=== PATIENT | male | born 1940 | race Asian ===

== ENCOUNTER 2019-09-17 18:35 | Emergency (ER) | payer MEDICAID, OTHER ==
[~2019-09-17] VITALS: Ht 170.2 cm; Wt 72.6 kg
[2019-09-17 18:35] VITALS: BP_SYST 159
[2019-09-17 19:12] LABS: HEMATOCRIT 32.5 % (36-54); HEMOGLOBIN 10.9 g/dL (14.0-18.0)
[2019-09-17 19:24] LABS: MEAN CORPUSCULAR HEMOGLOBIN 30 pg (27-31); MEAN CORPUSCULAR HGB CONC 34 % (32-36); MEAN CORPUSCULAR VOLUME 89 fL (79.0-98.0); PLATELET COUNT (AUTO) 177 K/uL (130-430); RED BLOOD CELL COUNT(AUTO) 3.64 MIL/uL (4.2-6.2); RED CELL DISTRIBUTION WIDTH 14.6 % (9.0-15.0); WHITE BLOOD COUNT (AUTO) 9.9 K/uL (4.8-10.8)
--- NOTE | 2019-09-17 19:40 | NUR ---
Patient to ER bed 02 to gown for evaluation. Side rails up. Report given to TIGRE Morfin
[2019-09-17 19:41] LABS: BAND % (MANUAL) 2 % (0-6); BASOPHILS % (MANUAL) 0 % (0-2); EOSINOPHILS % (MANUAL) 1 % (0-7); LYMPHOCYTES % (MANUAL) 25 % (20-46); MONOCYTES % (MANUAL) 7 % (0-11)
--- NOTE | 2019-09-17 19:48 | NUR ---
PT.PLACED IN BED 2. HERE FOR MEDICAL CLEARANCE FOR ADMISSION TO [facility]. PT. SENT HERE FROM [facility] FOR DANGER TO SELF. AT BEDSIDE TO EVALUATE PT. PT. ALERT,CONFUSED BUT CALM, CANTONESE SPEAKING ONLY.
--- NOTE | 2019-09-17 19:55 | NUR ---
URINE SPECIMEN AND MRSA SCREEN COLLECTED AND SENT TO THE LAB.
[2019-09-17 20:18] LABS: BILIRUBIN,URINE NEGATIVE (NEGATIVE); CLARITY/URINE CLEAR (CLEAR); COLOR,URINE YELLOW (YELLOW); GLUCOSE,URINE 2+ (NEGATIVE); KETONES,URINE NEGATIVE (NEGATIVE); LEUKOCYTE ESTERASE ,URINE NEGATIVE (NEGATIVE); NITRITE, URINE NEGATIVE (NEGATIVE); PROTEIN URINE 2+ (NEGATIVE); UROBILINOGEN,URINE 0.2 (0.2-1.0)
[2019-09-17 20:35] LABS: BLOOD, URINE TRACE (NEGATIVE)
[2019-09-17 20:45] LABS: BACTERIA,URINE FEW /HPF (None Seen); FINE GRANULAR CASTS,URINE 0-10 /LPF (None Seen); MUCUS,URINE None Seen /LPF (None Seen); RBC,URINE 0-3 /HPF (0-3); WBC,URINE 0-3 /HPF (0-3)
[2019-09-17 20:52] LABS: TRIGLYCERIDES 201 mg/dL (30-150)
[2019-09-17 20:53] LABS: CHOLESTEROL 186 mg/dL (<200); HDL CHOLESTEROL 63 mg/dL (>45); LDL CHOLESTEROL 90 mg/dL (<100)
[2019-09-17 20:54] LABS: BARBITURATE, URINE NEGATIVE (NEG <=200); BENZODIAZEPINE, URINE NEGATIVE (NEG <=150); CANNABINOID, URINE NEGATIVE (NEG <=50); COCAINE, URINE NEGATIVE (NEG <=150); METHAMPHETAMINES SCREEN,URINE NEGATIVE (NEG <=500); OPIATE, URINE NEGATIVE (NEG <=100); PHENCYCLIDINE SCREEN,URINE NEGATIVE (NEG <=25); UR TRICYCLIC ANTIDEPRESSANTS NEGATIVE (NEG <=300); URINE AMPHETAMINE NEGATIVE (NEG <=500); URINE METHADONE NEGATIVE (NEG <=200); URINE OXYCODONE SCREEN NEGATIVE (NEG <=100); URINE PROPOXYPHENE SCREEN NEGATIVE (NEG <=300)
[2019-09-17 20:59] LABS: ALANINE AMINOTRANSFERASE 30 U/L (12-78); ALBUMIN 3.7 g/dL (3.4-4.8); ANION GAP 2 (5-15); ASPARTATE AMINOTRANSFERASE 24 U/L (10-37); CALCIUM 9.3 mg/dL (8.4-11.0); CHLORIDE 103 mmol/L (98-107); CREATININE 1.48 mg/dL (0.55-1.30); GLUCOSE 237 mg/dL (70-99); POTASSIUM 4.9 mmol/L (3.5-5.1); SODIUM SERUM 139 mmol/L (136-145); TOTAL BILIRUBIN 0.2 mg/dL (0.0-1.0); UREA NITROGEN, BLOOD 47 mg/dL (8-21)
[2019-09-17 21:00] LABS: ACETAMINOPHEN < 1 ug/mL (1-30); ALCOHOL, BLOOD < 3 mg/dL (<10)
--- NOTE | 2019-09-17 21:35 | NUR ---
PT. MEDICALLY CLEARED FOR ADMISSION TO [facility] BY MD BUT KA=165/93. ER-MD MADE AWARE.
--- NOTE | 2019-09-17 21:39 | NUR ---
CLONIDINE 0.2 MG PO GIVEN ORDERED.
--- NOTE | 2019-09-17 21:41 | NUR ---
REPORT GIVEN TO ERVIN LANDEROS FROM [facility]. PT. GOING TO ROOM 54-A. [facility] HERE TO RADIOLOGY CT TECHNOLOGIST PT.
[2019-09-17] MEDS ORDERED: cloNIDine HCL 0.1 MG TABLET PO ONE (21:45)
--- NOTE | 2019-09-17 21:47 | NUR ---
REPORT GIVEN TO AKHIL BARAHONA. Addendum: 09/17/19 at 2152 by [email or web address] *TAY
--- NOTE | 2019-09-17 22:10 | NUR ---
BP STILL ELEVATED AT 187/98. ER- MADE AWARE AND SAID PT. OK TO GO.
--- NOTE | 2019-09-17 22:15 | NUR ---
PT. LEFT UNIT VIA AMANDA BACH.
[2019-09-17 22:22] VITALS: BP_SYST 187
== END 2019-09-17 22:22 ==
LOC: SED 18:35
DX: F03.91 Unspecified dementia, unspecified severity, with behavioral disturbance (principal); F91.8 Other conduct disorders; I10 Essential (primary) hypertension; E11.9 Type 2 diabetes mellitus without complications
CPT/HCPCS: 36415; 80053; 80061; 80307; 81000; 83036; 85007; 85027; 99285; G0480; G0481; G0482

== ENCOUNTER 2020-02-26 21:51 | Inpatient (IN) | payer OTHER, MEDICAID, SELFPAY ==
[~2020-02-26] VITALS: Ht 154.9 cm; Wt 50.8 kg
[2020-02-26 21:51] VITALS: BP_SYST 132
--- NOTE | 2020-02-26 21:51 | NUR ---
Patient to ER bed 05 to gown for evaluation. Side rails up. Report given to TIGRE Navarrete.
--- NOTE | 2020-02-26 22:00 | NUR ---
ER at bedside examining patient.
--- NOTE | 2020-02-26 22:00 | NUR ---
# 20 gauge angiocath placed to Right Forearm. Use of asceptic technique. Opsite placed over site. Blood return noted. Blood for lab drawn from site. Flushed with 10 cc of normal saline. No evidence of infiltration noted. Patient tolerated well.
--- NOTE | 2020-02-26 22:12 | NUR ---
X-ray at bedside.
[2020-02-26 22:23] LABS: HEMOGLOBIN 10.6 g/dL (14.0-18.0)
[2020-02-26 22:31] LABS: BASOPHILS % (AUTO) 0.2 % (0.0-2.0); HEMATOCRIT 31.8 % (36-54); LYMPHOCYTES # (AUTO) 0.4 K/uL (1.0-5.5); LYMPHOCYTES % (AUTO) 6.1 % (20.5-51.5); MEAN CORPUSCULAR HEMOGLOBIN 29 pg (27-31); MEAN CORPUSCULAR HGB CONC 33 % (32-36); MEAN CORPUSCULAR VOLUME 87 fL (79.0-98.0); MONOCYTES # (AUTO) 0.4 K/uL (0.0-1.0); MONOCYTES % (AUTO) 6.2 % (1.7-9.3); NEUTROPHILS # (AUTO) 6.2 K/uL (1.8-7.7); NEUTROPHILS % (AUTO) 87.5 % (40.0-70.0); PLATELET COUNT (AUTO) 201 K/uL (130-430); RED BLOOD CELL COUNT(AUTO) 3.67 MIL/uL (4.2-6.2); WHITE BLOOD COUNT (AUTO) 7.1 K/uL (4.8-10.8)
[2020-02-26 22:36] LABS: ANION GAP 9 (5-15); CALCIUM 9.4 mg/dL (8.4-11.0); CHLORIDE 107 mmol/L (98-107); CREATININE 1.69 mg/dL (0.55-1.30); GLUCOSE 182 mg/dL (70-99); POTASSIUM 4.1 mmol/L (3.5-5.1); SODIUM SERUM 146 mmol/L (136-145); UREA NITROGEN, BLOOD 52 mg/dL (8-21)
[2020-02-26 22:42] LABS: INR 0.9 (0.80-1.20); PROTHROMBIN TIME 9.5 SECS (9.5-12.5)
[2020-02-26 22:50] LABS: ALANINE AMINOTRANSFERASE 27 U/L (12-78); ASPARTATE AMINOTRANSFERASE 36 U/L (10-37); TOTAL BILIRUBIN 0.2 mg/dL (0.0-1.0)
--- NOTE | 2020-02-26 22:54 | NUR ---
In and out cath, collected and sent to lab, Urine yellow and clear, ~ 400 Ml.
[2020-02-26] MEDS ORDERED: NS 500 ML IV ONE (23:00)
[2020-02-26] MEDS ORDERED: NACL 0.9% 1,000 ML IV ONE (23:00)
[2020-02-26 23:10] LABS: BILIRUBIN,URINE NEGATIVE (NEGATIVE); CLARITY/URINE CLEAR (CLEAR); COLOR,URINE YELLOW (YELLOW); GLUCOSE,URINE 3+ (NEGATIVE); KETONES,URINE TRACE (NEGATIVE); LEUKOCYTE ESTERASE ,URINE NEGATIVE (NEGATIVE); NITRITE, URINE NEGATIVE (NEGATIVE); PROTEIN URINE 2+ (NEGATIVE); UROBILINOGEN,URINE 0.2 (0.2-1.0)
[2020-02-26 23:14] LABS: BLOOD, URINE TRACE (NEGATIVE)
[2020-02-26 23:15] LABS: BACTERIA,URINE FEW /HPF (None Seen); WBC,URINE 0-3 /HPF (0-3)
[2020-02-27] MEDS ORDERED: CEFEPIME 2 GM in D5W 100 ML IV ONE ×2
[2020-02-27] MEDS ORDERED: VANCOMYCIN HCL 1,000 MG in NS 250 ML IV ONE ×2
[2020-02-27] MEDS ORDERED: VANCOMYCIN HCL 1000 MG/VIAL IV ONE (00:15)
[2020-02-27] MEDS ORDERED: CEFEPIME 1 GM/VIAL (MAXIPIME) ONE (00:18)
[2020-02-27] MEDS ORDERED: ACET-2165 PO (01:07)
[2020-02-27] MEDS ORDERED: LIP40 PO (01:07)
[2020-02-27] MEDS ORDERED: ACET325T53 PO (01:07)
[2020-02-27] MEDS ORDERED: ASPI-1153 PO (01:07)
[2020-02-27] MEDS ORDERED: NOR10 PO (01:07)
[2020-02-27] MEDS ORDERED: BISA5TAB10 PO (01:07)
[2020-02-27] MEDS ORDERED: calcium carbonate PO (01:09)
[2020-02-27] MEDS ORDERED: DOCU250C14 PO (01:10)
[2020-02-27] MEDS ORDERED: CAT.1 PO (01:10)
[2020-02-27] MEDS ORDERED: DOCU-144 PO (01:10)
[2020-02-27] MEDS ORDERED: MAG AL PO (01:15)
[2020-02-27] MEDS ORDERED: LACT10SO6 PO (01:15)
[2020-02-27] MEDS ORDERED: INSU100V7 SUBCUT (01:15)
[2020-02-27] MEDS ORDERED: HYDR-3917 PO (01:15)
[2020-02-27] MEDS ORDERED: SITA100T11 PO (01:15)
[2020-02-27] MEDS ORDERED: VENL75CA56 PO (01:19)
[2020-02-27] MEDS ORDERED: PSYL3.4P5 PO (01:19)
[2020-02-27] MEDS ORDERED: SER25 PO (01:19)
[2020-02-27] MEDS ORDERED: GLU500 PO (01:19)
[2020-02-27] MEDS ORDERED: MOM PO (01:19)
[2020-02-27] MEDS ORDERED: QUET50TA PO (01:19)
[2020-02-27] MEDS ORDERED: MULT-1117 PO (01:19)
--- NOTE | 2020-02-27 01:20 | NUR ---
Medication reconciliation completed with information provided by [facility] [place]. Any prior medication reconciliation on file was reviewed and corrected.
--- NOTE | 2020-02-27 01:53 | NUR ---
Patient will be admitted to care of Dr. Marcus. Admitted to Tele unit. Will go to room 127B. Belongings list completed. Complete and up to date summary report printed. SBAR report to be given at bedside with opportunity for questions.
--- NOTE | 2020-02-27 01:54 | NUR ---
Transfer to Tele via ACLS protocol. Licensed nurse present. IV present no signs or symptoms of infiltration.
[2020-02-27] MEDS: CEFEPIME 1 GM in D5W 50 ML IV SCH (02:00)
--- NOTE | 2020-02-27 02:09 | NUR ---
ADMIT NOTE Received pt from ER to the floor with a diagnosis of PNA/sepsis. Admission process initiated. patient oriented to pain management, safety and call light-teach back done. Addendum: 02/27/20 at 0210 by Juan Miguel Frankel RN pt is confused.
[2020-02-27 02:10] VITALS: BP_SYST 123
[2020-02-27] MEDS: 0.45% NACL 1,000 ML IV SCH ×2 (02:20→17:35)
[2020-02-27] MEDS ORDERED: LORazepam 2 MG/ML VIAL IVP ONE (03:15)
--- NOTE | 2020-02-27 04:48 | NUR ---
Agitation: Patient is confused, constantly removing telemetry leads and nasal cannula. SaO2 on 2L NC = 96%. SaO2 on room air when patient removes nasal cannula ranges between 84% to 91%. Dr. Yoandy Marcus was made aware of patient's current status, received order for Ativan 0.5 MG intravenously. Medication was administered at this time per MD order. No infiltration to IV site. Patient tolerated well. Call light is with patient. Will continue monitoring.
[2020-02-27] MEDS ORDERED: CEFEPIME 1 GM in D5W 50 ML IV SCH (06:00)
--- NOTE | 2020-02-27 06:53 | NUR ---
Closing note: Patient is resting in bed, no acute distress. Even and unlabored respirations on 2L NC. IV fluids infusing well, no infiltration. Call light with patient. Safety, fall precautions observed. Isolation precautions observed for R/O COVID. Will endorse care to dayshift RN.
--- NOTE | 2020-02-27 07:15 | NUR ---
Nutrition Update Ted Scale 15 noted. Pt admitted for Pneumonia, Sepsis Diet: [facility] BMI: 19.8 kg/m2 RD to follow per nutrition care standards.
--- NOTE | 2020-02-27 07:45 | NUR ---
Patient restless, keep on removing telemonitor and tried to hit staff and tried to get up in bed. Cantonese speaking.hx of Dementia. reorientation provided. no s/s of distress. saturation 87%. placed 4 liters nasal cannula. side rail up. bed is low and lock position. bed alarm on. pt voided. good alesia care provided. oral care provided. sponge bath also given. ivf infusing well site patent. no swelling or infiltration noted. contact-droplet precaution maintained. waiting for covid result.
--- NOTE | 2020-02-27 08:00 | NUR ---
PLACED BILATERAL SOFT WRIST RESTRAINT. EASY RELEASE. CIRCULATION GOOD. CAPILLARY REFILL CHECK. WILL MONITOR.
[2020-02-27 08:26] LABS: BASOPHILS % (AUTO) 0.1 % (0.0-2.0); HEMATOCRIT 30.1 % (36-54); HEMOGLOBIN 9.8 g/dL (14.0-18.0); LYMPHOCYTES # (AUTO) 0.6 K/uL (1.0-5.5); LYMPHOCYTES % (AUTO) 13.8 % (20.5-51.5); MEAN CORPUSCULAR HEMOGLOBIN 29 pg (27-31); MEAN CORPUSCULAR HGB CONC 33 % (32-36); MEAN CORPUSCULAR VOLUME 88 fL (79.0-98.0); MONOCYTES # (AUTO) 0.3 K/uL (0.0-1.0); NEUTROPHILS # (AUTO) 3.7 K/uL (1.8-7.7); NEUTROPHILS % (AUTO) 80.1 % (40.0-70.0); PLATELET COUNT (AUTO) 161 K/uL (130-430); RED BLOOD CELL COUNT(AUTO) 3.42 MIL/uL (4.2-6.2); RED CELL DISTRIBUTION WIDTH 13.5 % (9.0-15.0); WHITE BLOOD COUNT (AUTO) 4.7 K/uL (4.8-10.8)
[2020-02-27 08:30] VITALS: BP_SYST 145
[2020-02-27 08:50] LABS: ALANINE AMINOTRANSFERASE 23 U/L (12-78); ALBUMIN 2.7 g/dL (3.4-4.8); ANION GAP 10 (5-15); ASPARTATE AMINOTRANSFERASE 37 U/L (10-37); CALCIUM 8.4 mg/dL (8.4-11.0); CHLORIDE 109 mmol/L (98-107); CREATININE 1.36 mg/dL (0.55-1.30); GLUCOSE 288 mg/dL (70-99); SODIUM SERUM 146 mmol/L (136-145); TOTAL BILIRUBIN 0.3 mg/dL (0.0-1.0); UREA NITROGEN, BLOOD 35 mg/dL (8-21)
--- NOTE | 2020-02-27 10:20 | NUR ---
LIPS DRY. ORAL CARE PROVIDED. TRIED TO FEED PATIENT BUT KEEP ON SPITTING THE FOOD. WILL TRY AGAIN LATER.
--- NOTE | 2020-02-27 10:55 | NUR ---
Case mgt: Pt is Covid pending-I called Rebecca Haines at [phone] to do dc plan assessment--she said her Montenegr[place] is poor and will have someone call us back for questions/assessment-I gave my direct ph# to case mgt-will await call from family-Per [facility] notes, pt is from [facility] in [place]. SYLVIA RN
[2020-02-27] MEDS ORDERED: LORazepam 2 MG/ML VIAL IVP PRN (11:00)
--- NOTE | 2020-02-27 11:20 | NUR ---
PATIENT RESTING, NO S/S OF DISTRESS. BEEN PASSING GAS NO BOWEL MOVEMENT NOTED. TURN AND REPOSITION WITH PILLOW SUPPORT.
[2020-02-27 12:00] VITALS: BP_SYST 132
[2020-02-27] MEDS: INSULIN REGULAR, HUMAN 100 UNITS/ML, 10 ML VIAL (humuLIN R) SUBCUT PRN ×2 (13:29→21:17)
--- NOTE | 2020-02-27 13:43 | NUR ---
CONSULTATION PAGED/CALLED Reason for Consultation: AGITATION, RESTLESS Person Who was Notified: JUNG Consulting Physician: Systems Software Specialist Specialty: Ordering Physician:
--- NOTE | 2020-02-27 14:34 | NUR ---
Case mgt: I received call from family friend Essence Mahnaz, who did conference call with me and Rebecca Deleon Zaki on phone so she could ask questions to Ms Haines in Vietnamese. I learned that Ms Haines is family friend, not a relative, of pt and she will call pt's Ms Benites and let her know her is at our facility. Per Ms Haines, pt gets up in w/c at [facility], feeds self, and has been there since his discharge from a [facility] (less than 1 yr) and was supposed to see a new MD Dr. Hernandez, but that appt didn't happen yet. I explained to Ms. Haines that when pt's ready for discharge planning back to [facility] case mgt dept will notify her--SYLVIA LANDEROS
--- NOTE | 2020-02-27 16:00 | NUR ---
Sherry Sanchez callback informed about the heart rate elevated lowest 115bpm. new order received vasotec 2.5 mg ivpx1. noted and carried out.
[2020-02-27 16:11] VITALS: BP_SYST 123
[2020-02-27] MEDS ORDERED: ENALAPRILAT DIHYDRATE 1.25 MG/ML VIAL IVP ONE (16:30)
--- NOTE | 2020-02-27 18:00 | NUR ---
patient saturation drop to 87%. on 4 liters nasal cannula. placed 6 liters Oxymizer. saturation goes up to 95%. pt voided good alesia care provided. hob elevated to prevent aspiration. tried to feed pt able to consumed 2 spoon of apple sauce.
--- NOTE | 2020-02-27 19:04 | NUR ---
PATIENT SATURATION REMAIN AT 94% ON 6 LITERS OXYMIZER.
--- NOTE | 2020-02-27 19:30 | NUR ---
OPENING NOTES Patient is resting, no signs of distress, 95% O2 saturation, 6L Oximizer. IV site patent, dressings c/d/i. Call light within reach, bed alarm on, bed at lowest position. SCDs on. Will continue to monitor.
[2020-02-27 20:00] VITALS: BP_SYST 124
[2020-02-28] VITALS: BP_SYST 141
[2020-02-28] MEDS: CEFEPIME 1 GM in D5W 50 ML IV SCH (01:46)
--- NOTE | 2020-02-28 02:14 | NUR ---
OPENING NOTES Received patient resting, no signs of acute respiratory distress, 6L oxymizer, saturation 96%. IV site patent, dressings c/d/i. Hernandes catheter draining by gravity, no kinks no loops. Endorsed that patient will need to have calorie counted and did not eat during the day. Call light within reach, bed alarm on, bed at lowest position. Isolation precautions to be kept. Will continue to monitor.
--- NOTE | 2020-02-28 04:40 | NUR ---
DR. LOERA MAKING ROUNDS. NEW ORDER RECEIVED FOR DIGOXIN AND CONSULTS RECEIVED.
[2020-02-28] MEDS ORDERED: ACETAMINOPHEN 325 MG TABLET PO PRN ×2 (04:45)
[2020-02-28] MEDS ORDERED: HYDROcodone/ACETAMIN 5-325 MG TAB (NORCO/ VICODIN) PO PRN (04:45)
[2020-02-28] MEDS ORDERED: BISACODYL 5 MG TABLET.DR (DULCOLAX) PO PRN (04:45)
[2020-02-28] MEDS ORDERED: DIGOXIN 0.5 MG/2 ML AMP IVP ONE (04:45)
[2020-02-28] MEDS ORDERED: CALCIUM CARBONATE 500 MG/ TAB.CHEW PO PRN ×2 (04:45→12:44)
[2020-02-28] MEDS ORDERED: MILK OF MAGNESIA 30 ML UDC PO SCH (04:45)
[2020-02-28] MEDS ORDERED: MAG-AL HYDROX/SIMETH 30 ML UDC PO PRN (04:45)
[2020-02-28] MEDS ORDERED: cloNIDine HCL 0.1 MG TABLET PO SCH (04:45)
[2020-02-28] MEDS ORDERED: LACTULOSE 20 GM/30 ML UDC PO PRN ×2 (04:45→12:42)
[2020-02-28] MEDS ORDERED: DOCUSATE SODIUM 100 MG CAPSULE PO PRN (04:45)
--- NOTE | 2020-02-28 05:45 | NUR ---
CONSULTATION PAGED/CALLED Reason for Consultation: TACHYCARDIA Person Who was Notified: VICTORINO Consulting Physician: DAVID Banquet Line Cook Specialty: CARDIO Ordering Physician: Yaondy LOERA
[2020-02-28] MEDS ORDERED: AZITHROMYCIN 500 MG in NS 250 ML IV ONE (06:30)
--- NOTE | 2020-02-28 07:07 | NUR ---
CONSULTATION PAGED/CALLED Reason for Consultation: [] HYPOXIA Person Who was Notified: [] DR DELACRUZ WAS DIRECTLY PAGED Consulting Physician: [] DR DELACRUZ High Risk Case Manager Specialty: [] PULMO Ordering Physician: [] DR LOERA DEV
--- NOTE | 2020-02-28 07:10 | NUR ---
CLOSING NOTES Patient is resting, no signs of acute respiratory distress, 6L oxymizer, 94% saturation. IV site patent, dressing c/d/i. Call light within reach, bed alarm on, restraints checked throughout shift. All needs met throughout shift. Will endorse care to oncoming shift.
--- NOTE | 2020-02-28 07:35 | NUR ---
INITIAL NOTE PT RESTING IN BED, NO ACUTE DISTRESS NOTED, BREATHING EVEN AND UNLABORED. PT ON 6L OXIMIZER, SATURATING AT 97%. IVF INFUSING WELL AT THIS TIME. SCD'S IN PLACE. SOFT WRIST RESTRAINTS IN PLACE. SKIN ASSESSMENT WNL. CALL LIGHT WITHIN REACH, BED IN LOW AND LOCKED POSITION WITH BED ALARM ON. ISOLATION PRECAUTIONS IN PLACE.
[2020-02-28] MEDS: INSULIN REGULAR, HUMAN 100 UNITS/ML, 10 ML VIAL (humuLIN R) SUBCUT PRN ×3 (07:39→22:57)
[2020-02-28 08:00] VITALS: BP_SYST 118
[2020-02-28] MEDS: ASPIRIN 81 MG TABLET(ECOTRIN) PO SCH ×2 (08:58→09:00)
[2020-02-28] MEDS: Effexor 37.5 MG TAB PO SCH ×3 (08:58→21:00)
[2020-02-28] MEDS: PSYLLIUM HUSK 1 PKT PACKET PO SCH ×3 (08:58→21:00)
[2020-02-28] MEDS: MULTIVITAMINS TAB 1 TABLET PO SCH ×2 (08:58→09:00)
[2020-02-28] MEDS: metFORMIN HCL 500 MG TABLET PO SCH ×2 (08:58→09:00)
[2020-02-28] MEDS: DOCUSATE SODIUM 250 MG CAPSULE PO SCH ×3 (08:58→09:55)
[2020-02-28] MEDS: QUEtiapine FUMARATE 25 MG TABLET PO SCH ×4 (08:59→21:00)
[2020-02-28] MEDS: amLODIPine BESYLATE 10 MG TABLET PO SCH (09:00)
[2020-02-28] MEDS ORDERED: QUEtiapine FUMARATE 25 MG TABLET PO SCH ×2 (09:00→11:00)
[2020-02-28] MEDS ORDERED: NACL 0.9% 1,000 ML IV ONE (09:15)
--- NOTE | 2020-02-28 09:35 | NUR ---
LETHARGIC PLACED PT IN HGIH FOWLERS POSITION, DEEP STIMULI ATTEMPTED TO ROUSE PT. PT LETHARGIC AND DID NOT OPEN EYES. ATTEMPTED ORAL INTAKE, PT REFUSED BY MOVING HEAD SIDE TO SIDE BUT NOT OPENING HIS EYES. CLEANED FACE WITH MOIST TOWEL, ATTEMPT ORAL CARE BUT PT RESISTED BY MOVING SIDE TO SIDE. PT LIPS VERY CHAPPED AND DRY, APPLIED MOISTURE GEL TO LIPS AND REMOVED DRY CRUST, PT TOLERATED WELL. PT INCONTINENT OF BOWEL AND URINE, CHANGED PT AND REPOSITIONED FOR COMFORT.
--- NOTE | 2020-02-28 09:40 | NUR ---
DR. DAVID ARANA AT BEDSIDE EXAMINING PT. INFORMED MD THAT PT IS LETHARGIC AND NOT RESPONDING, PT IS ON 1/2 NS @60. MD TO ORDER NS BOLUS AND CHANGE FLUIDS TO NS. VERIFIED WITH READ BACK.
[2020-02-28] MEDS: NACL 0.9% 1,000 ML IV SCH ×2 (09:52→17:30)
[2020-02-28 10:16] LABS: BASOPHILS % (AUTO) 0.1 % (0.0-2.0); HEMATOCRIT 28.8 % (36-54); HEMOGLOBIN 9.5 g/dL (14.0-18.0); LYMPHOCYTES # (AUTO) 0.6 K/uL (1.0-5.5); LYMPHOCYTES % (AUTO) 7.4 % (20.5-51.5); MEAN CORPUSCULAR HEMOGLOBIN 29 pg (27-31); MEAN CORPUSCULAR HGB CONC 33 % (32-36); MEAN CORPUSCULAR VOLUME 87 fL (79.0-98.0); MONOCYTES # (AUTO) 0.2 K/uL (0.0-1.0); MONOCYTES % (AUTO) 2.3 % (1.7-9.3); NEUTROPHILS # (AUTO) 7.3 K/uL (1.8-7.7); NEUTROPHILS % (AUTO) 90.2 % (40.0-70.0); PLATELET COUNT (AUTO) 151 K/uL (130-430); RED BLOOD CELL COUNT(AUTO) 3.31 MIL/uL (4.2-6.2); RED CELL DISTRIBUTION WIDTH 13.9 % (9.0-15.0); WHITE BLOOD COUNT (AUTO) 8.1 K/uL (4.8-10.8)
[2020-02-28 10:25] LABS: ANION GAP 11 (5-15); CALCIUM 8.1 mg/dL (8.4-11.0); CHLORIDE 111 mmol/L (98-107); CREATININE 1.33 mg/dL (0.55-1.30); GLUCOSE 218 mg/dL (70-99); POTASSIUM 3.2 mmol/L (3.5-5.1); SODIUM SERUM 147 mmol/L (136-145); UREA NITROGEN, BLOOD 27 mg/dL (8-21)
[2020-02-28 10:40] LABS: ALANINE AMINOTRANSFERASE 22 U/L (12-78); ALBUMIN 2.3 g/dL (3.4-4.8); ASPARTATE AMINOTRANSFERASE 42 U/L (10-37); THYROID STIMULATING HORMONE 0.94 uIu/mL (0.36-3.74); TOTAL BILIRUBIN 0.5 mg/dL (0.0-1.0)
[2020-02-28 12:00] VITALS: BP_SYST 153
--- NOTE | 2020-02-28 12:15 | NUR ---
IV INFILTRATED IV CATHETER REMOVED, CATHETER INTACT, NO BLEEDING. NEW IV STARTED ON RIGHT FOREARM 22 GUAGE. PT TOLERATED WELL. IVF INFUSING WELL.
[2020-02-28] MEDS ORDERED: cloNIDine HCL 0.1 MG TABLET PO PRN (12:37)
[2020-02-28] MEDS ORDERED: MILK OF MAGNESIA 30 ML UDC PO PRN (12:43)
--- NOTE | 2020-02-28 15:53 | NUR ---
DR. LEORA RESOURCE NURSE, VIVI SPOKE WITH , INFORMED K 3.2 CALCIUM 8.1, PT IS LETHARGIC AND NOT EATING NOR DRINKING. NEW ORDERS FOR K RIDER AND CALORIE COUNT STARTING AT DINNER. VERIFIED WITH READ BACK.
[2020-02-28 16:00] VITALS: BP_SYST 166
--- NOTE | 2020-02-28 16:22 | NUR ---
HIGH BP/PAGESherry LOERA CATHETER REMOVED, CATHETER INTACT, NO BLEEDING. NEW IV PLACED IN RIGHT UPPER FOREARM 20 GUAGE. PT TOLERATED WELL. IVF INFUSING AT THIS TIME. BP 166/78 HR 107. VIJAY ARANA, WILL CONTINUE TO MONITOR.
--- NOTE | 2020-02-28 16:25 | NUR ---
Dietitian Recommendations *Continue CCHO, Puree diet as tolerated *Recommend Glucerna Shakes TID *Consider appetite stimulant *If PO remains negligible, consider alternative means of nutrition Please see Nutrition Assessment for further details. LT, RD
--- NOTE | 2020-02-28 16:51 | NUR ---
SUPERVISOR PUBLIC MESSAGE SERVICE DR MARCELINO, PLATFORM INSPECTOR FOR DR HERNANDEZ WAS CALLED, RE: HIGH BP.. SPOKE TO ELOINA.
--- NOTE | 2020-02-28 16:56 | NUR ---
DR. MARCELINO SPOKE WITH MD VIA PHONE, INFORMED MD OF BP 166/78 HR 107, PT IS LETHARGIC AND NOT EATING OR DRINKING. NEW ORDERS RECEIVED, VERIFIED WITH READ BACK.
[2020-02-28] MEDS ORDERED: POTASSIUM CHLORIDE 40 MEQ, LIDOCAINE JECT 2% PF 100 MG 50 MG in NS 250 ML IV ONE (17:00)
--- NOTE | 2020-02-28 17:09 | NUR ---
DR. LOERA SPOKE WITH MD AT NURSE STATION, INFORMED MD OF DR. MARCELINO'S ORDER AND DR. JOHNSON CHANGE IN IV FLUIDS. INFORMED MD THAT PT HAS ONLY VOIDED ONCE TODAY, PT HAS RECEIVED 1L BOLUS AND INCREASED IVF RATE. NEW ORDERS FOR BATES CATHETER TO BE INSERTED. VERIFIED WITH READ BACK.
[2020-02-28] MEDS: ENALAPRILAT DIHYDRATE 1.25 MG/ML VIAL IVP SCH (17:14)
--- NOTE | 2020-02-28 18:30 | NUR ---
BATES INSERTED PT INCONTINENT OF BOWEL, SMALL/SOFT AND BLACK. CLEANED PT AND REPOSITIONED. BATES INSERTED, OUTPUT 350CC, CLEAR AND YELLOW, PT TOLERATED WELL.
--- NOTE | 2020-02-28 19:15 | NUR ---
OPENING NOTES Received patient resting, no signs of acute respiratory distress observed, 6L oxymizer, patient tolerating well with 96% O2 saturation. IV site patent, dressings c/d/i, IVF running with K rider, patient tolerating well. Call light within reach, bed alarm on, bed at lowest position. Isolation precautions to be kept. Will continue to monitor.
--- NOTE | 2020-02-28 19:20 | NUR ---
CLOSING NOTE PT RESTING QUIETLY, NO ACUTE DISTRESS NOTED, BREATHING EVEN AND UNLABORED. PT ON 6L OXIMIZER, SATING AT 96%. IVF AND K-RIDER INFUSING WELL. BATES DRAINING TO GRAVITY. SCD'S IN PLACE. CALL LIGHT WITHIN REACH, BED IN LOW AND LOCKED POSITION WITH BED ALARM ON. ISOLATION PRECAUTIONS IN PLACE. ALL NEEDS MET THROUGHOUT SHIFT. ENDORSED TO POLICE CRIME SCENE TECHNICIAN RN, CALORIE COUNT FOR PT STARTING AT DINNER, PT REMAINS LETHARGIC AND DOES NOT EAT OR DRINK, MD IS AWARE. PT CARE ENDORSED TO POLICE CRIME SCENE TECHNICIAN RN.
--- NOTE | 2020-02-28 19:25 | NUR ---
OPENING NOTES Received patient resting in bed, no signs of shortness of breath, 6L Oxymizer, 97 O2 saturation. IV site patent, dressings c/d/i. Hernandes cathter in place, draining by gravity, no kinks, no loops, bag not touching the floor. Was endorsed that patient did not eat and calorie count in place. Call light within reach, bed alarm on, bed at lowest position. Isolation precautions in place, awaiting covid testing results. Will continue to monitor.
[2020-02-28 20:00] VITALS: BP_SYST 160
[2020-02-28] MEDS: ATORVASTATIN 20 MG TABLET PO SCH (21:00)
--- NOTE | 2020-02-28 21:05 | NUR ---
Patient refuses to eat, unable to provide PO medications. Will continue to monitor.
--- NOTE | 2020-02-28 23:10 | NUR ---
Urine sample sent to lab.
[2020-02-29] VITALS: BP_SYST 145
--- NOTE | 2020-02-29 00:15 | NUR ---
Patient is resting, no signs of shortness of breath, scant bowel movement, perineal care performed. IVF running at 50, IV site patent, dressings c/d/i, patient tolerating well. Will continue to monitor.
[2020-02-29] MEDS: ENALAPRILAT DIHYDRATE 1.25 MG/ML VIAL IVP SCH ×4 (01:04→17:37)
--- NOTE | 2020-02-29 01:10 | NUR ---
RECEIVED RESULTS OF POSITIVE COVID TESTING, WILL PAGE DR. LOERA.
--- NOTE | 2020-02-29 01:20 | NUR ---
Paged Stan Reed s/w Christianne.
[2020-02-29] MEDS: CEFEPIME 1 GM in D5W 50 ML IV SCH (02:11)
--- NOTE | 2020-02-29 02:12 | NUR ---
Patient is resting, no signs of distress observed. IVF running at 50, IV site patent, dressings c/d/i.
--- NOTE | 2020-02-29 04:45 | NUR ---
DR LOERA MADE AWARE OF POSITIVE COVID TESTING.
--- NOTE | 2020-02-29 06:10 | NUR ---
DR. BULL MAKING ROUNDS, MADE AWARE THAT PATIENT IS NOT EATING OR TAKING PO MEDICATIONS, NEW ORDER OF HALDOL 2MG IVP Q4P RECEIVED.
[2020-02-29] MEDS ORDERED: HALOPERIDOL LACTATE 5 MG/ML VIAL IVP PRN (06:15)
[2020-02-29] MEDS: INSULIN REGULAR, HUMAN 100 UNITS/ML, 10 ML VIAL (humuLIN R) SUBCUT PRN ×3 (06:55→21:25)
--- NOTE | 2020-02-29 07:15 | NUR ---
CLOSING NOTES Patient is resting, no signs of distress observed, no shortness of breath throughout shift, 6L oxymizer. IV site patent, dressings c/d/i. Call light within reach, bed alarm on, bed at lowest position. qureshi catheter in place, draining by gravity, no kinks, no loops, bag not touching the floor. All needs met throughout shift. Will endorse care to oncoming shift.
[2020-02-29] MEDS: NACL 0.9% 1,000 ML IV SCH (07:22)
[2020-02-29 08:00] VITALS: BP_SYST 146
--- NOTE | 2020-02-29 08:00 | NUR ---
initial notes rec patient asleep but arousable to stimuli. ivf infusing well on the r upper arm . no infiltration noted. bed to the lowest position and side rails up and locked. call light wihtn reached. pt on narciso restrains and checked for circulation. pt with 6 liters oximizer. no osb noted. will continue to monitor patient.
[2020-02-29 08:28] LABS: BASOPHILS % (AUTO) 0.1 % (0.0-2.0); HEMATOCRIT 29.2 % (36-54); HEMOGLOBIN 9.6 g/dL (14.0-18.0); LYMPHOCYTES # (AUTO) 0.6 K/uL (1.0-5.5); LYMPHOCYTES % (AUTO) 7.2 % (20.5-51.5); MEAN CORPUSCULAR HEMOGLOBIN 29 pg (27-31); MEAN CORPUSCULAR HGB CONC 33 % (32-36); MEAN CORPUSCULAR VOLUME 88 fL (79.0-98.0); MONOCYTES # (AUTO) 0.3 K/uL (0.0-1.0); MONOCYTES % (AUTO) 3.7 % (1.7-9.3); NEUTROPHILS # (AUTO) 7.4 K/uL (1.8-7.7); PLATELET COUNT (AUTO) 167 K/uL (130-430); RED BLOOD CELL COUNT(AUTO) 3.33 MIL/uL (4.2-6.2); RED CELL DISTRIBUTION WIDTH 14.1 % (9.0-15.0); WHITE BLOOD COUNT (AUTO) 8.3 K/uL (4.8-10.8)
[2020-02-29] MEDS ORDERED: AZITHROMYCIN 250 MG in NS 250 ML IV SCH (09:00)
[2020-02-29] MEDS: PSYLLIUM HUSK 1 PKT PACKET PO SCH ×2 (09:00→21:00)
[2020-02-29 09:17] LABS: ALANINE AMINOTRANSFERASE 20 U/L (12-78); ANION GAP 9 (5-15); ASPARTATE AMINOTRANSFERASE 44 U/L (10-37); CALCIUM 8.1 mg/dL (8.4-11.0); CREATININE 1.11 mg/dL (0.55-1.30); GLUCOSE 207 mg/dL (70-99); POTASSIUM 3.7 mmol/L (3.5-5.1); SODIUM SERUM 150 mmol/L (136-145); TOTAL BILIRUBIN 0.3 mg/dL (0.0-1.0); UREA NITROGEN, BLOOD 30 mg/dL (8-21)
[2020-02-29 09:19] LABS: CHLORIDE 121 mmol/L (98-107)
[2020-02-29] MEDS: ENOXAPARIN SODIUM 30 MG/0.3 ML SYRINGE SUBCUT SCH (09:30)
[2020-02-29] MEDS: MULTIVITAMINS TAB 1 TABLET PO SCH (10:30)
[2020-02-29] MEDS: Effexor 37.5 MG TAB PO SCH ×2 (10:30→21:00)
[2020-02-29] MEDS: metFORMIN HCL 500 MG TABLET PO SCH (10:30)
[2020-02-29] MEDS: amLODIPine BESYLATE 10 MG TABLET PO SCH (10:30)
[2020-02-29] MEDS: DOCUSATE SODIUM 250 MG CAPSULE PO SCH (10:30)
[2020-02-29] MEDS: ASPIRIN 81 MG TABLET(ECOTRIN) PO SCH (10:30)
[2020-02-29] MEDS: QUEtiapine FUMARATE 25 MG TABLET PO SCH ×3 (10:30→21:00)
--- NOTE | 2020-02-29 10:30 | NUR ---
rounds due meds were given. seen by dr marvin. no osb noted. turned repositoned for comfort. had a bowel movement.
[2020-02-29 12:00] VITALS: BP_SYST 117
--- NOTE | 2020-02-29 12:00 | NUR ---
rounds no hypo hyperglycemic reaction noted. bed to the lowest position. resting comfortably.
--- NOTE | 2020-02-29 14:00 | NUR ---
rounds r t was called pt was sating at 86 88 deg. was observed and oximzer was increased by jakub to 15 liters.
[2020-02-29 16:00] VITALS: BP_SYST 112
--- NOTE | 2020-02-29 18:15 | NUR ---
rounds no hypo hyperglycemic reaction noted. turned repositioned for comfort.
--- NOTE | 2020-02-29 19:00 | NUR ---
closing notes r t was called and patient saturation was 78, 82 and jump to 90. lionel serrano at bedside and did abd. endorsed to sri henriquez rn.
--- NOTE | 2020-02-29 19:30 | NUR ---
RT at bedside Pt O2 sat 88%. RT drawing ABG at this time.
[2020-02-29 19:40] VITALS: BP_SYST 112
--- NOTE | 2020-02-29 20:10 | NUR ---
RT changed pt to non-rebreather mask O2 saturation 97-98%. Paged Dr. Sanchez re abnormal ABGs. Awaiting callback.
[2020-02-29 21:00] VITALS: BP_SYST 166
[2020-02-29] MEDS: ATORVASTATIN 20 MG TABLET PO SCH (21:00)
--- NOTE | 2020-02-29 21:00 | NUR ---
Opening notes Pt eyes closed, opens to stimuli. O2 sat 97% via non-rebreather mask. No s/s distress noted. IVF infusing at ordered rate KATHLEEN 20G no s/s infiltration. Pt refused PO meds. Hernandes catheter draining to gravity with dark yellow urine. Manuel SCDs on. Call light within reach. Safety maintained. Bed low, locked, siderails up. To monitor.
[2020-03-01] VITALS (23 sets, daily range): BP systolic 62–165
--- NOTE | 2020-03-01 00:15 | NUR ---
Paged Dr. Sanchez, dialed pager no. [phone]
--- NOTE | 2020-03-01 00:35 | NUR ---
Rounds/Paged Pt awake, confused. No s/s distress noted. O2 sat 98% on non rebreather mask. Manuel wrists restraints on. Pt repositioned. Paged Dr. Sanchez ([facility]) again, no callback. HS RN aware. Hernandes catheter draining to gravity. Manuel SCDs on. Bed low, locked, siderails up. To monitor.
[2020-03-01] MEDS: ENALAPRILAT DIHYDRATE 1.25 MG/ML VIAL IVP SCH ×3 (00:54→12:00)
[2020-03-01] MEDS: NACL 0.9% 1,000 ML IV SCH ×2 (00:54→21:05)
[2020-03-01] MEDS: CEFEPIME 1 GM in D5W 50 ML IV SCH (01:02)
--- NOTE | 2020-03-01 02:30 | NUR ---
Rounds Pt awake, eyes open, no s/s respiratory distress noted. IVF infusing at ordered rate KATHLEEN clear and patent. Hernandes catheter draining to gravity. Call light within reach. Bed low, locked, siderails up. To monitor.
[2020-03-01] MEDS: INSULIN REGULAR, HUMAN 100 UNITS/ML, 10 ML VIAL (humuLIN R) SUBCUT PRN ×4 (06:15→21:05)
--- NOTE | 2020-03-01 06:24 | NUR ---
Closing notes Pt awake, eyes open, no s/s respiratory distress noted. O2 sat 97-98% on non-rebreather mask. HOB elevated. IVF infusing at ordered rate KATHLEEN 20G no s/s infiltration. Blood sugar checked 216, 4 units Regular insulin administered per protocol. Hernandes catheter draining to gravity with clear, yellow urine. Manuel SCDs on. Bed low, locked, siderails up x4. To endorse to AM nurse.
--- NOTE | 2020-03-01 07:33 | NUR ---
OPENING NOTES PT RESTLESS. PT O2 DROPPED TO 80%, PT ON NON-REBREATHER MASK, ADJUSTED NON-REBREATHER MASK AND MOVED PT UP IN BED, O2 WENT BACK TO 94% THEN BACK TO 91%. SPOKE TO DR. DELACRUZ, RECEIVED ORDERS TO MOVE PT TO ICU.
--- NOTE | 2020-03-01 08:41 | NUR ---
TRANSFERRED PT TO ICU, CARE TO TIGRE DOWNEY.
--- NOTE | 2020-03-01 08:50 | NUR ---
Admission Received patient from [facility]. Patient transferred via bed accompanied by 2 RNs. Patient on non rebreather at 100% FIO2 and O2 89. Rapid intubation ordered by /Laura. At bedside with and received orders to administer 20 mg succinylcholine and 20 mg of etomidate via IV push. Patient tolerated procedure well without complaint or complication. Patient also was inserted an NG tube and chest x ray completed to confirm placement of ET tube and NG tube.
[2020-03-01] MEDS ORDERED: MIDAZOLAM HCL 5 MG/5 ML VIAL ONE (09:00)
--- NOTE | 2020-03-01 09:00 | NUR ---
RT Note: 0857 Pt successfully intubated by Dr Sanchez with 7.5 ETT at 25cm LL. 0900 Placed pt on vent on ff settings AC 20, Vt 300, PEEP 5, and FiO2 100%. Addendum: 03/01/20 at 1003 by Cindy Ro RT Amended: Links added.
--- NOTE | 2020-03-01 09:05 | NUR ---
Radiology at bedside completing chest xray. Received report and NG and ET tube in place.
[2020-03-01] MEDS ORDERED: PROPOFOL DRIP 100 ML IV PRN (09:30)
--- NOTE | 2020-03-01 10:20 | NUR ---
Called Dr. Sanchez and reported patient tachypneic and using accessory muscles for breathing. Resp rate at 31. Received orders to start propofol. Do not exceed 10 mcg/kg/min.
[2020-03-01] MEDS: QUEtiapine FUMARATE 25 MG TABLET PO SCH ×3 (10:33→20:58)
[2020-03-01] MEDS: ASCORBIC ACID 500 MG TABLET PO SCH ×2 (10:34→20:58)
[2020-03-01] MEDS: PSYLLIUM HUSK 1 PKT PACKET PO SCH ×2 (10:34→20:57)
[2020-03-01] MEDS: MULTIVITAMINS TAB 1 TABLET PO SCH (10:34)
[2020-03-01] MEDS: amLODIPine BESYLATE 10 MG TABLET PO SCH (10:34)
[2020-03-01] MEDS: DOCUSATE SODIUM 250 MG CAPSULE PO SCH (10:35)
[2020-03-01] MEDS: metFORMIN HCL 500 MG TABLET PO SCH (10:35)
[2020-03-01] MEDS: ASPIRIN 81 MG TABLET(ECOTRIN) PO SCH (10:35)
[2020-03-01] MEDS: Effexor 37.5 MG TAB PO SCH ×2 (10:35→20:58)
[2020-03-01] MEDS: ENOXAPARIN SODIUM 30 MG/0.3 ML SYRINGE SUBCUT SCH (10:36)
[2020-03-01] MEDS: HYDROXYCHLOROQUINE SULFATE 200 MG TABLET PO SCH ×2 (10:38→20:58)
[2020-03-01] MEDS ORDERED: ETOMIDATE 20 MG/ 10 ML VIAL (AMIDATE) IVP ONE ×2 (11:49→13:52)
[2020-03-01] MEDS ORDERED: SUCCINYLCHOLINE CHLORIDE 20 MG/ML(QUELICIN) IVP ONE ×2 (11:49→13:52)
--- NOTE | 2020-03-01 12:05 | NUR ---
Patient blood pressure observed at 57/28. Paged Dr. Sanchez and stayed with patient at bedside. Patient was repositioned to shunt blood and blood pressure observed to 74/38. Received call from Dr. Sanchez and received orders for Levophed 4mg in 250 NS bag. Patient started on levophed drip. Addendum: 03/01/20 at 1454 by Bulmaro Obrien RN Propofol turned off.
[2020-03-01] MEDS: DOXYCYCLINE HYCLATE 100 MG CAPSULE PO SCH ×2 (12:27→20:58)
[2020-03-01] MEDS ORDERED: NOREPINEPHRINE 4 MG/4 ML VIAL IV ONE (12:39)
--- NOTE | 2020-03-01 13:15 | NUR ---
Spoke to patient Delmis Connelly and had Edgar RN speak Cantonese. Received consent for picc line for telephone consent.
[2020-03-01 14:57] LABS: PROTHROMBIN TIME 9.6 SECS (9.5-12.5)
--- NOTE | 2020-03-01 15:22 | NUR ---
Nutrition F/U Admitting Diagnosis PNA, Sepsis Reviewed Pertinent Medical/Surgical Hx Medical Record Medical History Comment: PMHx includes DM, HLD, protein malnutrition, anemia of CKD3, dementia with behavior disturbance, depression per physician notes. Pt admitted with PNA, pending COVID-19 PCR per physician notes. Pt is of bedbound status and requires total assistance. Per ID physician, pt is hypoxic and on 6L HFNC. Awaiting pulmonary consultation. Pt intubated on 02/26. Subjective Information Pt seen as high risk d/t sepsis. RD deferred visit to pt d/t pt being r/o for COVID-19. RD called Nursing Station to reach Primary RN; however Primary RN was busy tending to pt. RD attempted to call back in the afternoon; however was still unable to reach RN. Left message to have Primary RN call back when available. Per EMR review, PO intake was negligible at 0-25%. Pt will likely benefit from a nutrition supplement to help meet nutrition needs. If PO intake continues to be negligible, pt may need an appetite stimulant or alternative means of nutrition may need to be considered. Nutrition education not appropriate. Current Diet Order/Nutrition Support CCHO, Puree x 4 days TF Jev 1.5 30 ml/hr, 50 ml Q4H x0 days Pertinent Medications Atorvastatin, Lactulose, Tradjenta, MVI, Metformin, Human Insulin, Propofol Pertinent Labs (02/27) Na: 147H, K: 3.2L, BUN: 27H, Cr: 1.33H, BS 218H, POC: 277H, 149H (03/01) POC: 202H Height (Feet) 5 feet Height (Inches) 1.00 inches Weight (Pounds) 112 pounds Weight (Calculated Kilograms) 50.227970 kilograms Patient Weight 50.802 kg Body Mass Index 21.16 kg/m2 %IBW 95 [place]/Adjusted Body Weight IBW: 112#/51kg Weight Status Appropriate Gastrointestinal Symptoms None Usual Diet At Home N/A Skin Integrity Comment: Ted Score: 13 Skin: No problems identified per nursing note. Current % PO Negligible <25%, TF recently initiated Estimated Energy Expenditure (kcals/day) 1200-1440kcal/day (25-30 kcal/kg based on CBW for maintenance) Estimated Protein Required (g/day) 72-96g/day (1.5-2/kg based on CBW for critical illness, sepsis) Estimated Fluid Required (l/day) 1.2-1.4L/day based on CBW for maintenance Problem/Etiology/Signs/Symptoms Inadequate protein energy intake related to estimated nutrition needs for medical condition as evidenced by PO intake not meeting nutrition needs. Increased nutrient needs related to increased metabolic demands as evidenced by critical illness, sepsis Expected Outcomes/Goals -Monitor appetite and PO intakes w/ goal of pt meeting at least 75% of estimated nutritional needs, labs trending WNL, normal GI function, and skin integrity/wt maintenance -TF tolerance Dietitian Recommendations *Continue TF as tolerated which provides: 1080 kcal, 122 g Pro, and 547 mL H2O Follow Up High Risk: F/U in 2-3days
[2020-03-01] MEDS ORDERED: ENALAPRILAT DIHYDRATE 1.25 MG/ML VIAL IVP PRN (15:36)
[2020-03-01] MEDS: LORazepam 2 MG/ML VIAL IVP PRN (15:47)
[2020-03-01] MEDS: NOREPINEPHRINE BITARTRATE 4 MG in NS 246 ML IV PRN ×2 (18:14→23:48)
--- NOTE | 2020-03-01 19:30 | NUR ---
Resumed care for patient.
[2020-03-01] MEDS: ATORVASTATIN 20 MG TABLET PO SCH (20:58)
--- NOTE | 2020-03-01 23:53 | NUR ---
PAGED DR. DELACRUZ FOR ORDERS DIALED: [phone] SPOKE TO: AUTOMATED EXCHANGE
[2020-03-02] VITALS (36 sets, daily range): BP systolic 75–132
--- NOTE | 2020-03-02 00:15 | NUR ---
Received call back from Dr. Sanchez and received orders to change vent setting to Tidal Volume 350 and AC 22
--- NOTE | 2020-03-02 00:19 | NUR ---
PAGED DR. DELACRUZ FOR ORDERS DIALED: [phone] SPOKE TO: AUTOMATED EXCHANGE
[2020-03-02] MEDS: CEFEPIME 1 GM in D5W 50 ML IV SCH (02:00)
--- NOTE | 2020-03-02 03:30 | NUR ---
Closing Note Provided plan of care via sbar to receiving TIGRE Leonard.
--- NOTE | 2020-03-02 03:50 | NUR ---
NURSING ASSESSMENT. PT VENTILATED, TACHYPNEIC, FEEDING VIA NGT RESUMED AT 30 ML PER HR, PT'S HEAD OF BED ELEVATED AT 35 DEGREE ANGLE, IV LEVOPHED DRIP AT 22 MCG/MIN, SALES PROPERTY MANAGER SINUS TACHY, COVID 19 POSITIVE.
[2020-03-02] MEDS: NOREPINEPHRINE BITARTRATE 4 MG in NS 246 ML IV PRN ×3 (05:30→12:00)
[2020-03-02] MEDS: INSULIN REGULAR, HUMAN 100 UNITS/ML, 10 ML VIAL (humuLIN R) SUBCUT PRN ×4 (06:03→21:51)
--- NOTE | 2020-03-02 07:15 | NUR ---
REPORT. GIVEN TO ONCOMING DAY SHIFT NURSE.
--- NOTE | 2020-03-02 07:20 | NUR ---
Received patient and endorsed report from [facility] shift nurse. Patient in bed, side rails x 3 up, call light with in reach, in no acute distress.
[2020-03-02] MEDS: PSYLLIUM HUSK 1 PKT PACKET PO SCH ×2 (08:06→21:21)
[2020-03-02] MEDS: DEXAMETHASONE SOD PHOSPHATE 10 MG/ML VIAL IVP SCH (08:06)
[2020-03-02] MEDS: metFORMIN HCL 500 MG TABLET PO SCH (08:07)
[2020-03-02] MEDS: ASPIRIN 81 MG TABLET(ECOTRIN) PO SCH (08:07)
[2020-03-02] MEDS: ASCORBIC ACID 500 MG TABLET PO SCH ×2 (08:08→21:21)
[2020-03-02] MEDS: HYDROXYCHLOROQUINE SULFATE 200 MG TABLET PO SCH ×2 (08:08→21:21)
[2020-03-02] MEDS: DOCUSATE SODIUM 250 MG CAPSULE PO SCH (08:08)
[2020-03-02] MEDS: DOXYCYCLINE HYCLATE 100 MG CAPSULE PO SCH ×2 (08:08→21:21)
[2020-03-02] MEDS: Effexor 37.5 MG TAB PO SCH ×2 (08:08→21:21)
[2020-03-02] MEDS: QUEtiapine FUMARATE 25 MG TABLET PO SCH ×3 (08:09→21:21)
[2020-03-02] MEDS: LORazepam 2 MG/ML VIAL IVP PRN (08:10)
[2020-03-02] MEDS: ENOXAPARIN SODIUM 30 MG/0.3 ML SYRINGE SUBCUT SCH (08:11)
--- NOTE | 2020-03-02 08:30 | NUR ---
MD Kay at bedside.
[2020-03-02] MEDS: amLODIPine BESYLATE 10 MG TABLET PO SCH (09:00)
[2020-03-02] MEDS ORDERED: MIDAZOLAM HCL 2 MG/2 ML VIAL (VERSED) ONE (09:00)
[2020-03-02] MEDS: MULTIVITAMINS TAB 1 TABLET PO SCH (09:11)
[2020-03-02] MEDS: NACL 0.9% 1,000 ML IV SCH (09:12)
[2020-03-02] MEDS ORDERED: COMMUNICATION ORDER XX PRN (09:15)
--- NOTE | 2020-03-02 09:15 | NUR ---
MD Sanchez at bedside. Ordered 1 mg versed IVP stat, morphine drip titration, versed drip titration. Orders placed.
[2020-03-02] MEDS ORDERED: MORPHINE I.V. DRIP 100 ML IV PRN ×2 (09:30→11:15)
[2020-03-02] MEDS: MIDAZOLAM HCL 50 MG in NS 50 ML IV PRN (10:27)
[2020-03-02 10:36] LABS: BASOPHILS % (AUTO) 0.1 % (0.0-2.0); EOSINOPHILS % (AUTO) 0.1 % (0.0-4.0); HEMATOCRIT 24.7 % (36-54); LYMPHOCYTES # (AUTO) 0.2 K/uL (1.0-5.5); LYMPHOCYTES % (AUTO) 3.6 % (20.5-51.5); MEAN CORPUSCULAR HEMOGLOBIN 29 pg (27-31); MEAN CORPUSCULAR HGB CONC 32 % (32-36); MEAN CORPUSCULAR VOLUME 89 fL (79.0-98.0); MONOCYTES # (AUTO) 0.3 K/uL (0.0-1.0); NEUTROPHILS # (AUTO) 5.6 K/uL (1.8-7.7); NEUTROPHILS % (AUTO) 91.2 % (40.0-70.0); PLATELET COUNT (AUTO) 173 K/uL (130-430); RED BLOOD CELL COUNT(AUTO) 2.77 MIL/uL (4.2-6.2); RED CELL DISTRIBUTION WIDTH 14.6 % (9.0-15.0); WHITE BLOOD COUNT (AUTO) 6.2 K/uL (4.8-10.8)
[2020-03-02 10:38] LABS: ANION GAP 8 (5-15); CALCIUM 7.8 mg/dL (8.4-11.0); CREATININE 1.47 mg/dL (0.55-1.30); GLUCOSE 211 mg/dL (70-99); POTASSIUM 3.7 mmol/L (3.5-5.1); SODIUM SERUM 155 mmol/L (136-145); UREA NITROGEN, BLOOD 36 mg/dL (8-21)
[2020-03-02 10:45] LABS: ALANINE AMINOTRANSFERASE 20 U/L (12-78); ALBUMIN 1.7 g/dL (3.4-4.8); ASPARTATE AMINOTRANSFERASE 46 U/L (10-37); TOTAL BILIRUBIN 0.3 mg/dL (0.0-1.0)
[2020-03-02 10:51] LABS: CHLORIDE 124 mmol/L (98-107)
--- NOTE | 2020-03-02 14:30 | NUR ---
VALENTINO Carranza at bedside, reported chloride from morning lab draw result 124, sodium 155. Stated will look at labs.
--- NOTE | 2020-03-02 15:28 | NUR ---
Rufino Sanchez regarding ABG values.
--- NOTE | 2020-03-02 15:31 | NUR ---
MD Sanchez called back, ordered to decrease FI02 to 80%. Respiratory therapist made aware.
--- NOTE | 2020-03-02 17:00 | NUR ---
Stan Cee MD.
--- NOTE | 2020-03-02 17:15 | NUR ---
MD Marcus called back, informed that urine output for shift was 275 and lab results from this morning resulted in sodium 155 and chloride 124 and asked if IV fluids should be switched. MD Marcus ordered to keep IV fluids as is, new order albumin 25% 50 ml x 2. Orders placed.
--- NOTE | 2020-03-02 17:25 | NUR ---
Md Marcus called facility, new order MD Haynes for nephrology consult related to low urine output. MD Marcus stated don't have to inform MD Haynes was already notified.
[2020-03-02] MEDS ORDERED: ALBUMIN HUMAN 25% 50 ML IV ONE (18:02)
[2020-03-02] MEDS: ALBUMIN HUMAN 25% 50 ML IV SCH ×2 (18:25→21:22)
--- NOTE | 2020-03-02 19:15 | NUR ---
change of shift.pt.presents isolation status;droplet;covid 19+.pt.presents ventilator;prvc intervention.pt.presents et-tube;rt,mouth.position.pt.presents ng-tube;lt.nares;ng-tube feed infusing.pt.presents picc line;location;rt.bicept;drips; ms,levophed,versed infusng.ms-drip:5mg/hr,levophed;4mcq/min,versed;2mg/hr.general status stable.respiratory status stable:o2-sat%=100%.call light/w/in reach of the pt.
--- NOTE | 2020-03-02 19:20 | NUR ---
Endorsed patient and gave report to NOC shift nurse. Patient in no acute distress. Side rails x 3 up. Call light with in reach.
--- NOTE | 2020-03-02 20:00 | NUR ---
pt.assessed.v/s assessed w/in normal limits:note b/p values;2/t levophed drip.picc line:intact;patent;drips;ms.levophed,versed infusing. ng-tube in place;lt.nares.i have attended to skin care.et-tube in place;i have attended to the oral care/suction.qureshi cath intact;patent urine content present.vent/prvc settings tv;500,fio-2%=80,a/c;22,peep;5.o2-sat%=100%.pt.assessed for cleanliness.pt.repositioned. call light placed w/in reach of the pt.
--- NOTE | 2020-03-02 20:30 | NUR ---
blood glucose assessed :value;246mg/dl.
--- NOTE | 2020-03-02 21:00 | NUR ---
2100p medications administered.administered via the ng-tube.w/out resistance/difficulty;ng-tube feed residuals:5ml. i have administered insulin;regular;4 units per the sliding scale.
[2020-03-02] MEDS: ATORVASTATIN 20 MG TABLET PO SCH (21:21)
--- NOTE | 2020-03-02 22:00 | NUR ---
pt.assessed.v/s assessed values w/in normal limits.note b/p values.i have attended to the oral care/suction.picc line intact; patent; drips:ms,levophed,versed infusing.i have administered albumin:25%/50ml 2nd bottle.qureshi cath intact;;patent urine content present; scant.pt.assessed for cleanliness.pt.repositioned.ng-tube in placed;i have attended to the skin care.general status stable. respiratory status stable: vent/prvc;02-sat%=100%.call light placed w/in reach of the pt.
--- NOTE | 2020-03-02 22:35 | NUR ---
RT NOTES 2235 TITRATED FIO2 TO 70%, PT SATURATION 99%, NO RESP DISTRESS NOTED. RN CHANG FLANAGAN. WILL MONITOR PT.
[2020-03-03] VITALS (35 sets, daily range): BP systolic 102–159
--- NOTE | 2020-03-03 | NUR ---
pt.assessed.v/s assessed values w/in normal limits.b/p values noted wnl.i have attended to the oral care/suction.pt.assessed for cleanliness. pt.repositioned.ng-tube in place;skin care attended to.qureshi cath intact patent urine content present.picc line intact;patent drips;ms,levophed,versed infusing.ng-tube feed infusing residuals scant;5ml.general status stable.respiratory status stable; o2-sat%=100%.call light placed w/in reach of the pt.
[2020-03-03] MEDS: NACL 0.9% 1,000 ML IV SCH (00:24)
[2020-03-03] MEDS: NOREPINEPHRINE BITARTRATE 4 MG in NS 246 ML IV PRN (00:26)
--- NOTE | 2020-03-03 00:30 | NUR ---
i have decreased the levophed drip rate;3mcq/min:b/p;126/58.
--- NOTE | 2020-03-03 02:00 | NUR ---
pt.assessed.v/s assessed values w/in normal limits.b/p wnl.iv drips;ms,levophed,versed infusing.pt.assessed for cleanliness.pt.repositioned. picc line intact patent.qureshi cath intact patent.urine content present.i have attended to the oral care/suction. ng-tube in placed. skin care attended to.call light placed w/in reach of the pt.
[2020-03-03] MEDS: CEFEPIME 1 GM in D5W 50 ML IV SCH (02:17)
--- NOTE | 2020-03-03 04:00 | NUR ---
pt.assessed.v/s assessed values w/in normal limits.b/p values noted.ng-tube;lt.nares in place;skin care attended to.et-tube in-place.ng-tube feed infusing.picc line intact;patent drips;ms.levophed versed infusing.qureshi cath intact patent urine content present.general status stable.respiratory status stable;vent/prvc settings:02-sat%=100%.i have attended to the oral care/suction.pt.ased foe cleanliness. pt.repositioned.call light placed w/in reach of the pt.
--- NOTE | 2020-03-03 04:10 | NUR ---
RT NOTES 0410 titrated FIO2 to 60%, pt tolerated well saturation sat 100%. rn sunil aware, no resp distress noted. will monitor pt, will endorse changes to am RT.
[2020-03-03] MEDS: INSULIN REGULAR, HUMAN 100 UNITS/ML, 10 ML VIAL (humuLIN R) SUBCUT PRN ×3 (05:16→18:03)
--- NOTE | 2020-03-03 06:30 | NUR ---
pt.assessed.v/s assessed values w/in normal limits.pt.assessed for cleanliness.pt.repositioned. picc line intact;patent;drips;ms,levophed,versed infusing@0530a i decreased the rate:levophed drip;2mcq/min. b/p 138/54.qureshi cath intact;patent;urine content present;scant total for the 12hr-shift. apprised: consulted;re;decrease urine output.i have noted the sacrum;iad.erythema. sacrum cutaneous issue attended to.dsg applied. vent;prvc assessed;02-sat%=98%.the blood glucose assessed;value;408mg/dl.;jacquie present i apprised of the blood glucose value; did not order additional insulin.i have administered insulin;regular;12-units per the sliding scale.call light placed w/in reach of the pt.
[2020-03-03 06:58] LABS: ALANINE AMINOTRANSFERASE 17 U/L (12-78); ALBUMIN 1.7 g/dL (3.4-4.8); ANION GAP 5 (5-15); ASPARTATE AMINOTRANSFERASE 25 U/L (10-37); CALCIUM 7.2 mg/dL (8.4-11.0); CREATININE 1.64 mg/dL (0.55-1.30); POTASSIUM 3.6 mmol/L (3.5-5.1); SODIUM SERUM 148 mmol/L (136-145); TOTAL BILIRUBIN 0.3 mg/dL (0.0-1.0); UREA NITROGEN, BLOOD 41 mg/dL (8-21)
[2020-03-03 07:03] LABS: CHLORIDE 120 mmol/L (98-107)
[2020-03-03 07:04] LABS: GLUCOSE 438 mg/dL (70-99)
--- NOTE | 2020-03-03 07:30 | NUR ---
CLOSING NOTE PT LAYING IN BED. NO SIGNS OR SYMPTOMS OF DISTRESS NOTED. VITAL SIGNS STABLE. SBAR REPORT GIVEN TO NEIDA LANDEROS. CARE ENDORSED. Addendum: 03/04/20 at 0853 by Antonia Portillo RN NOTE PLACED ON WRONG DATE. 05/04/20
--- NOTE | 2020-03-03 07:55 | NUR ---
RT NOTES Vent settings to CPAP [address] Sanchez's order. No adverse reactions noted.
--- NOTE | 2020-03-03 08:00 | NUR ---
Initial notes- no acute distress noted. tolerating feeding and vent settings at this time. qureshi cath draining yellow urine. will monitor.
[2020-03-03 08:53] LABS: LYMPHOCYTES # (AUTO) 0.2 K/uL (1.0-5.5); MONOCYTES # (AUTO) 0.2 K/uL (0.0-1.0); NEUTROPHILS # (AUTO) 2.6 K/uL (1.8-7.7)
[2020-03-03] MEDS: DOCUSATE SODIUM 250 MG CAPSULE PO SCH (08:58)
[2020-03-03] MEDS: DEXAMETHASONE SOD PHOSPHATE 10 MG/ML VIAL IVP SCH (08:58)
[2020-03-03] MEDS: MULTIVITAMINS TAB 1 TABLET PO SCH (08:59)
[2020-03-03] MEDS: Effexor 37.5 MG TAB PO SCH ×2 (08:59→21:00)
[2020-03-03] MEDS: ASPIRIN 81 MG TABLET(ECOTRIN) PO SCH (08:59)
[2020-03-03] MEDS: metFORMIN HCL 500 MG TABLET PO SCH (08:59)
[2020-03-03] MEDS: PSYLLIUM HUSK 1 PKT PACKET PO SCH (08:59)
[2020-03-03] MEDS: amLODIPine BESYLATE 10 MG TABLET PO SCH (09:00)
[2020-03-03] MEDS: ASCORBIC ACID 500 MG TABLET PO SCH (09:00)
[2020-03-03] MEDS: DOXYCYCLINE HYCLATE 100 MG CAPSULE PO SCH (09:00)
[2020-03-03] MEDS: HYDROXYCHLOROQUINE SULFATE 200 MG TABLET PO SCH (09:00)
[2020-03-03] MEDS: QUEtiapine FUMARATE 25 MG TABLET PO SCH ×2 (09:00→14:49)
[2020-03-03] MEDS: ENOXAPARIN SODIUM 30 MG/0.3 ML SYRINGE SUBCUT SCH (09:02)
[2020-03-03 09:19] LABS: HEMOGLOBIN 6.3 g/dL (14.0-18.0); LYMPHOCYTES % (AUTO) 7.5 % (20.5-51.5); MEAN CORPUSCULAR HEMOGLOBIN 29 pg (27-31); MEAN CORPUSCULAR HGB CONC 33 % (32-36); MEAN CORPUSCULAR VOLUME 88 fL (79.0-98.0); MONOCYTES % (AUTO) 7.1 % (1.7-9.3); PLATELET COUNT (AUTO) 125 K/uL (130-430); RED CELL DISTRIBUTION WIDTH 14.4 % (9.0-15.0)
[2020-03-03 09:20] LABS: HEMATOCRIT 19.4 % (36-54)
--- NOTE | 2020-03-03 10:24 | NUR ---
notes- Dr. solis here and made aware of consults.
--- NOTE | 2020-03-03 11:15 | NUR ---
called family ( ) for blood transfusion consent, interpreted by Essence. Family agreed for transfusion.
--- NOTE | 2020-03-03 12:20 | NUR ---
RT NOTES Vent settings back to PC 16 RR 22 FIO2 80% due to low saturation.
--- NOTE | 2020-03-03 13:07 | NUR ---
Wound Evaluation: Wound Consult ordered for Low Ted Score. Patient evaluated for a low Ted score of 12. Patient had eyes closed, non-verbal, non-responsive to verbal commands, and received in a Goltry InTouch Bed with an IsoFlex ARTEM mattress with low air-loss therapy initiated. Patient needs to be turned in bed. Buttocks have erythema from IAD. Recommend: Reposition patient side to side only every 2 hours with pillow support. Elevate, off-load and float bilateral heels with one pillow lengthwise under each extremity at all times. Offload pressure areas with pillows for pressure re-distribution. Perform skin care and monitor skin integrity Q shift. Use moisture barrier cream on moisture susceptible areas QID and PRN for soiling. Maintain patient on low air-loss therapy.
[2020-03-03 13:41] LABS: NEUTROPHILS % (AUTO) 85.4 % (40.0-70.0)
[2020-03-03] MEDS: HEPARIN SODIUM,PORCINE 5000 UNITS/ML VIAL SUBCUT SCH (14:00)
--- NOTE | 2020-03-03 15:35 | NUR ---
RT NOTES FIO2 to 100 due to low saturation. RN notified
--- NOTE | 2020-03-03 16:25 | NUR ---
BT- Started first unit of PRBC. will monitor.
[2020-03-03 16:26] LABS: BILIRUBIN,URINE NEGATIVE (NEGATIVE); CLARITY/URINE CLEAR (CLEAR); COLOR,URINE YELLOW (YELLOW); GLUCOSE,URINE 3+ (NEGATIVE); KETONES,URINE NEGATIVE (NEGATIVE); LEUKOCYTE ESTERASE ,URINE NEGATIVE (NEGATIVE); NITRITE, URINE NEGATIVE (NEGATIVE); PH,URINE 5.5 (5.0-8.0); PROTEIN URINE 1+ (NEGATIVE); UROBILINOGEN,URINE 0.2 (0.2-1.0)
[2020-03-03 16:27] LABS: BLOOD, URINE TRACE (NEGATIVE)
[2020-03-03 16:32] LABS: RBC,URINE 0-3 /HPF (0-3); WBC,URINE 0-3 /HPF (0-3)
[2020-03-03 16:33] LABS: BACTERIA,URINE FEW /HPF (None Seen); COARSE GRANULAR CASTS,URINE 0-10 /LPF (None Seen); URINE AMORPHOUS URATE 2+ /HPF (None Seen)
--- NOTE | 2020-03-03 18:31 | NUR ---
Notes- Resting at this time. Blood transfusion still ongoing. Afebrile. tolerating current vent settings.
--- NOTE | 2020-03-03 19:16 | NUR ---
OPENING NOTE SBAR RECEIVED FROM ALESHA BRUNO RN. CARE ASSUMED.
--- NOTE | 2020-03-03 20:55 | NUR ---
BLOOD TRANSFUSION COMPLETE 1 UNIT OF PRBCS INFUSED. PT TOLERATED PROCEDURE WELL. WILL CONTINUE TO MONITOR.
--- NOTE | 2020-03-03 21:45 | NUR ---
BLOOD TRANSFUSION 2ND UNIT OF PRBCS BEGUN. NO SIGNS AND SYMPTOMS OF REACTION. WILL CONTINUE TO MONITOR.
--- NOTE | 2020-03-03 22:00 | NUR ---
BLOOD TRANSFUSION INFUSING NO SIGNS OR SYMPTOMS OF REACTION NOTED. VITALS STABLE. PT TOLERATING PROCEDURE WELL. WILL CONTINUE TO MONITOR.
[2020-03-03 22:05] LABS: LEGIONELLA PNEUMOPHILIA AB <0.91 OD ratio (0.00-0.90)
--- NOTE | 2020-03-03 23:30 | NUR ---
BLOOD TRANSFUSION COMPLETE 2 UNIT OF PRBCS INFUSED. NO SIGNS OR SYMPTOMS OF REACTION NOTED. PT TOLERATED PROCEDURE WELL. WILL CONTINUE TO MONITOR.
[2020-03-04] VITALS (35 sets, daily range): BP systolic 89–174
[2020-03-04 00:10] LABS: MYCOPLASMA PNEUMONIAE IgM <770 U/mL (0-769)
[2020-03-04] MEDS: HYDROXYCHLOROQUINE SULFATE 200 MG TABLET PO SCH ×3 (00:45→21:03)
[2020-03-04] MEDS: 0.45% NACL 1,000 ML IV SCH ×2 (00:45→15:39)
[2020-03-04] MEDS: QUEtiapine FUMARATE 25 MG TABLET PO SCH ×4 (00:46→21:04)
[2020-03-04] MEDS: PSYLLIUM HUSK 1 PKT PACKET PO SCH ×3 (00:46→21:03)
[2020-03-04] MEDS: HEPARIN SODIUM,PORCINE 5000 UNITS/ML VIAL SUBCUT SCH ×4 (00:47→21:05)
[2020-03-04] MEDS: ATORVASTATIN 20 MG TABLET PO SCH ×2 (00:48→21:03)
[2020-03-04] MEDS: DOXYCYCLINE HYCLATE 100 MG CAPSULE PO SCH ×3 (00:48→21:04)
[2020-03-04] MEDS ORDERED: MIDAZOLAM HCL 5 MG/5 ML VIAL ONE ×2 (02:16→02:17)
[2020-03-04] MEDS: CEFEPIME 1 GM in D5W 50 ML IV SCH (02:30)
[2020-03-04] MEDS: MIDAZOLAM HCL 50 MG in NS 50 ML IV PRN (03:33)
[2020-03-04 07:16] LABS: BASOPHILS % (AUTO) 0.1 % (0.0-2.0); HEMATOCRIT 31.6 % (36-54); HEMOGLOBIN 10.4 g/dL (14.0-18.0); LYMPHOCYTES # (AUTO) 0.2 K/uL (1.0-5.5); LYMPHOCYTES % (AUTO) 4.5 % (20.5-51.5); MEAN CORPUSCULAR HEMOGLOBIN 30 pg (27-31); MEAN CORPUSCULAR HGB CONC 33 % (32-36); MEAN CORPUSCULAR VOLUME 90 fL (79.0-98.0); MONOCYTES # (AUTO) 0.2 K/uL (0.0-1.0); MONOCYTES % (AUTO) 4.9 % (1.7-9.3); NEUTROPHILS # (AUTO) 3.3 K/uL (1.8-7.7); NEUTROPHILS % (AUTO) 90.5 % (40.0-70.0); PLATELET COUNT (AUTO) 140 K/uL (130-430); RED BLOOD CELL COUNT(AUTO) 3.51 MIL/uL (4.2-6.2); RED CELL DISTRIBUTION WIDTH 15.5 % (9.0-15.0); WHITE BLOOD COUNT (AUTO) 3.6 K/uL (4.8-10.8)
--- NOTE | 2020-03-04 07:30 | NUR ---
Opening Notes Pt received from night RN using SBAR.
--- NOTE | 2020-03-04 07:30 | NUR ---
CLOSING NOTE PT LAYING IN BED. NO SIGNS OR SYMPTOMS OF DISTRESS NOTED. VITAL SIGNS STABLE. SBAR REPORT GIVEN TO NEIDA LANDEROS. CARE ENDORSED.
[2020-03-04] MEDS: INSULIN REGULAR, HUMAN 100 UNITS/ML, 10 ML VIAL (humuLIN R) SUBCUT PRN ×4 (07:52→22:13)
[2020-03-04 08:09] LABS: MICROALBUMIN URINE RANDOM 118.3 ug/mL (Not Estab.)
[2020-03-04 08:12] LABS: ALANINE AMINOTRANSFERASE 15 U/L (12-78); ALBUMIN 1.5 g/dL (3.4-4.8); ANION GAP 6 (5-15); ASPARTATE AMINOTRANSFERASE 26 U/L (10-37); CALCIUM 7.4 mg/dL (8.4-11.0); CREATININE 1.56 mg/dL (0.55-1.30); GLUCOSE 387 mg/dL (70-99); POTASSIUM 3.7 mmol/L (3.5-5.1); SODIUM SERUM 152 mmol/L (136-145); TOTAL BILIRUBIN 0.3 mg/dL (0.0-1.0); UREA NITROGEN, BLOOD 44 mg/dL (8-21)
[2020-03-04 08:15] LABS: CHLORIDE 124 mmol/L (98-107)
[2020-03-04] MEDS: amLODIPine BESYLATE 10 MG TABLET PO SCH (09:00)
[2020-03-04] MEDS: ASPIRIN 81 MG TABLET(ECOTRIN) PO SCH (09:00)
[2020-03-04] MEDS: metFORMIN HCL 500 MG TABLET PO SCH (09:00)
[2020-03-04] MEDS: DEXAMETHASONE SOD PHOSPHATE 10 MG/ML VIAL IVP SCH (09:00)
[2020-03-04] MEDS: DOCUSATE SODIUM 250 MG CAPSULE PO SCH (09:00)
[2020-03-04] MEDS: Effexor 37.5 MG TAB PO SCH ×2 (09:00→21:03)
[2020-03-04] MEDS: MULTIVITAMINS TAB 1 TABLET PO SCH (09:00)
[2020-03-04 10:46] LABS: PROTHROMBIN TIME 10.3 SECS (9.5-12.5)
--- NOTE | 2020-03-04 10:47 | NUR ---
Resting Pt resting with eyes closed, no signs of acute distress. Will continue to monitor.
[2020-03-04 11:19] LABS: TOTAL IRON BIND. CAPACITY 81 ug/dL (250-450)
--- NOTE | 2020-03-04 13:49 | NUR ---
Nutrition F/U Admitting Diagnosis: PNA, Sepsis Medical History Comment: PMHx includes DM, HLD, protein malnutrition, anemia of CKD3, dementia with behavior disturbance, depression per physician notes. 03/04/20: Sepsis, Multiorgan Failure. 03/04 CXR: unchanged appearance of the bilateral infiltrates and effusions. Subjective Information Nutrition Consult received for calorie cound 02/27. - Pt is now intubated, on vent and pureed diet is not medically applicable. Nutrition Consult received for low Ted score 03/03. RD s/w pt's primary RN and she reported that pt is tolerating OGT feeding. RN to cancel PO diet order. Per EMR, blood transfusion was given, BM 03/02 x1, abd is soft and nondistended. Current EN regimen provides 1080 kcal, 46gm protein and 847ml free water daily which meets 77% of estimated calorie needs and 64% of estimated protein needs. RD noted elevated BG and POC BG lab values. Pt may benefit from Glucerna for better BG control and protein supplement to meet estimated protein needs. Current Diet Order/Nutrition Suppor: Jevity 1.5 30 ml/hr, Free Water Flush: 50 ml Q4H x3 days Pertinent Medications: Lactulose, Tradjenta, MVI, Metformin, Human Insulin, Decadron, Seroquel, Heparin, Zinc, Haldol, Lipitor, Colace Pertinent Labs: (03/04) Na: 152H, K: 3.7WNL, BUN: 44H, CRE: 1.56H, BS 387H, POC BH COVID-19 PCR 02/25 Positive Height (Feet): 5 feet Height (Inches): 1.00 inches Weight (Pounds): 112 pounds Weight (Calculated Kilograms): 50.197780 kilograms Body Mass Index: 21.16 kg/m2 Skin Integrity Comment: Ted Score: 13. Gas Fitter note 03/03: No PI No wounds. Per RN 1+ non-pitting edema to Bilateral hand. Current % PO: N/A on EN NEW Estimated Energy Expenditure (kcals/day) T: 36.39 degrees Celsius, Ve: 15.7 1401 kcal/day (PSU 2003b for acute state on vent) Estimated Protein Required (g/day) 72-96g/day (1.5-2/kg based on CBW for critical illness, sepsis) Estimated Fluid Required (l/day) 1.2-1.4L/day based on CBW for maintenance Problem/Etiology/Signs/Symptoms Inadequate protein energy intake related to estimated nutrition needs for medical condition as evidenced by PO intake not meeting nutrition needs. (*no longer applicable) Increased nutrient needs related to increased metabolic demands as evidenced by critical illness, sepsis. (*ongoing) Altered nutrition related labs r/t endocrine and renal dysfunction AEB elevated BG, POC BG, BUN, CRE lab values. (*new) Expected Outcomes/Goals -Monitor EN tolerance and intakes w/ goal of pt meeting at least 75% of estimated nutritional needs, labs trending WNL, normal GI function, and skin integrity/wt maintenance Dietitian Recommendations * Recommend: Glucerna 1.5 at 35ml/hr, Prosource BID, Free Water Flush 50ml Q4H via OGT Provides: 1380 kcal, 99gm protein and 998ml free water daily. Meets: 98% of estimated calorie needs and 103% of upper end of estimated protein needs. Follow Up High Risk: F/U in 2-3days
--- NOTE | 2020-03-04 14:22 | NUR ---
Dietitian Recommendations * Recommend: Glucerna 1.5 at 35ml/hr, Prosource BID, Free Water Flush 50ml Q4H via OGT Provides: 1380 kcal, 99gm protein and 998ml free water daily. Meets: 98% of estimated calorie needs and 103% of upper end of estimated protein needs. Please see Nutrition F/U note for details. INTERMEDIATE, RD
[2020-03-04 16:01] LABS: CREATININE, URINE 49.8 mg/dL
--- NOTE | 2020-03-04 16:16 | NUR ---
RT NOTES- PEEP 8, 80%FIO2 PER DR. LANDEROS INCREASED FIO2 TO 8 AND TITRATED FIO2 TO 80% AT THIS TIME. KEEPING SPO2 ABOVE 90%. TIGRE CARRASQUILLO MADE AWARE.
[2020-03-04] MEDS ORDERED: K PHOS 30 MM in NS 250 ML IV ONE (17:45)
--- NOTE | 2020-03-04 18:01 | NUR ---
FiO2 Monitoring pts Vent changes, pt able to maintain oxygenation of 95% will continue to monitor.
[2020-03-04] MEDS: INSULIN GLARGINE 100 UNITS/ML 10 ML VIAL SUBCUT SCH (18:53)
--- NOTE | 2020-03-04 19:29 | NUR ---
Closing Notes Pt endorsed to night RN using SBAR.
--- NOTE | 2020-03-04 20:00 | NUR ---
LETHARGIC. ORALLY INTUBATED. SUCTIONED WITH SMALL AMOUNT OF CLEAR MUCUS OBTAINED. ORAL CARE GIVEN. NGT FEEDING WITH JEVITY 1.5 AT 30CC/HR. RESIDUAL CHECK 0. NGT FLUSHED WITH 200CC H2O. KATHLEEN PICC LINE DRSG D/I. ON MORPHINE DRIP AT 0.5 MG/HR, AND VERSED DRIP AT 1 MG/HR. BATES CATH PATENT DRAINING CLEAR EMANUEL URINE TO GRAVITY.
--- NOTE | 2020-03-04 21:00 | NUR ---
ACCU-CHEK 330, 8 UNITS REGULAR INSULIN SQ GIVEN PER SLIDING SCALE COV. NGT CLOGGED , DISCONTINUED. NEW OGT REINSERTED. PLACEMENT VERIFIED BY 2 RN'S.
[2020-03-05] VITALS (33 sets, daily range): BP systolic 105–138
--- NOTE | 2020-03-05 | NUR ---
OGT FLUSHED WITH 200CC H2O. ORAL CARE DONE. TURNED. SUCTIONED.
--- NOTE | 2020-03-05 02:00 | NUR ---
DR LOERA HERE. NEW ORDERS GIVEN TO BE IMPLEMENTED.
[2020-03-05] MEDS ORDERED: PIPERACILLIN/TAZOBACTAM 2.25 GM VIAL IV ONE (03:03)
[2020-03-05] MEDS: PIPERACILLIN/TAZO 2.25G/DEX-IS 50 ML IV SCH ×4 (03:05→20:56)
--- NOTE | 2020-03-05 04:00 | NUR ---
SUCTIONED WITH SAME RESULTS. OGT FLUSHED WITH 200CC H2O. ORAL CARE DONE.
--- NOTE | 2020-03-05 05:00 | NUR ---
CHG BATH GIVEN. BATES CARE, BACK CARE, SKIN CARE, AVELINO CARE RENDERED. PARTIAL LINEN CHANGE DONE. DOES NOT ASSIST WITH TURNING. MISAEL PROC WELL.
[2020-03-05] MEDS: HEPARIN SODIUM,PORCINE 5000 UNITS/ML VIAL SUBCUT SCH ×3 (05:28→21:13)
--- NOTE | 2020-03-05 06:00 | NUR ---
UO ADEQUATE. GRIMACES WHEN SUCTIONED. REMAINS IN GUARDED CONDITION.
[2020-03-05 06:07] LABS: FOLATE (FOLIC ACID) 5.9 ng/mL (>3.0)
[2020-03-05] MEDS: INSULIN REGULAR, HUMAN 100 UNITS/ML, 10 ML VIAL (humuLIN R) SUBCUT PRN ×4 (06:15→21:53)
--- NOTE | 2020-03-05 06:30 | NUR ---
ACCU-CHEK 359, 10 UNITS REGULAR INSULIN SQ GIVEN PER SLIDING SCALE COV.
[2020-03-05 06:57] LABS: BASOPHILS % (AUTO) 0.1 % (0.0-2.0); HEMATOCRIT 31.1 % (36-54); HEMOGLOBIN 10.1 g/dL (14.0-18.0); LYMPHOCYTES # (AUTO) 0.2 K/uL (1.0-5.5); LYMPHOCYTES % (AUTO) 3.4 % (20.5-51.5); MEAN CORPUSCULAR HEMOGLOBIN 30 pg (27-31); MEAN CORPUSCULAR HGB CONC 33 % (32-36); MEAN CORPUSCULAR VOLUME 91 fL (79.0-98.0); MONOCYTES # (AUTO) 0.4 K/uL (0.0-1.0); MONOCYTES % (AUTO) 5.9 % (1.7-9.3); NEUTROPHILS # (AUTO) 6.3 K/uL (1.8-7.7); NEUTROPHILS % (AUTO) 90.6 % (40.0-70.0); PLATELET COUNT (AUTO) 150 K/uL (130-430); RED BLOOD CELL COUNT(AUTO) 3.42 MIL/uL (4.2-6.2); RED CELL DISTRIBUTION WIDTH 15.7 % (9.0-15.0); WHITE BLOOD COUNT (AUTO) 6.9 K/uL (4.8-10.8)
[2020-03-05 07:09] LABS: ANION GAP 10 (5-15); CHLORIDE 119 mmol/L (98-107); CREATININE 2.04 mg/dL (0.55-1.30); GLUCOSE 347 mg/dL (70-99); POTASSIUM 4.8 mmol/L (3.5-5.1); SODIUM SERUM 150 mmol/L (136-145); UREA NITROGEN, BLOOD 59 mg/dL (8-21)
[2020-03-05 07:14] LABS: LACTATE DEHYDROGENASE 350 U/L (85-227); PHOSPHORUS 4.6 mg/dL (2.7-4.5)
[2020-03-05 07:19] LABS: PROTHROMBIN TIME 10.5 SECS (9.5-12.5)
--- NOTE | 2020-03-05 07:30 | NUR ---
Opening Notes Pt received from night RN using SBAR. Pt laying in bed with eyes closed, bed in lowest position with HOB greater than [address] draining yellow urine to gravity. Pt connected to Vent. Isolation precautions in place.
[2020-03-05 07:51] LABS: CALCIUM 6.7 mg/dL (8.4-11.0)
[2020-03-05] MEDS: ASPIRIN 81 MG TABLET(ECOTRIN) PO SCH (08:22)
[2020-03-05] MEDS: DOCUSATE SODIUM 250 MG CAPSULE PO SCH (08:22)
[2020-03-05] MEDS: DEXAMETHASONE SOD PHOSPHATE 10 MG/ML VIAL IVP SCH (08:22)
[2020-03-05] MEDS: amLODIPine BESYLATE 10 MG TABLET PO SCH (08:23)
[2020-03-05] MEDS: Effexor 37.5 MG TAB PO SCH ×2 (08:23→21:11)
[2020-03-05] MEDS: DOXYCYCLINE HYCLATE 100 MG CAPSULE PO SCH ×2 (08:23→21:12)
[2020-03-05] MEDS: MULTIVITAMINS TAB 1 TABLET PO SCH (08:23)
[2020-03-05] MEDS: PSYLLIUM HUSK 1 PKT PACKET PO SCH ×2 (08:24→21:12)
[2020-03-05] MEDS: HYDROXYCHLOROQUINE SULFATE 200 MG TABLET PO SCH (08:24)
[2020-03-05] MEDS: metFORMIN HCL 500 MG TABLET PO SCH (08:24)
[2020-03-05] MEDS: QUEtiapine FUMARATE 25 MG TABLET PO SCH ×3 (08:24→21:12)
[2020-03-05] MEDS: INSULIN GLARGINE 100 UNITS/ML 10 ML VIAL SUBCUT SCH (08:25)
--- NOTE | 2020-03-05 11:30 | NUR ---
Resting Pt resting, no new changes at this time. Will continue to monitor.
--- NOTE | 2020-03-05 13:40 | NUR ---
FiO2 titrated down to 70% Addendum: 03/05/20 at 1505 by Ramiro Vidales RT Amended: Links added.
--- NOTE | 2020-03-05 14:00 | NUR ---
FiO2 PT changed to FiO2 70% by RT, will continue to monitor.
[2020-03-05] MEDS: 0.45% NACL 1,000 ML IV SCH (14:35)
[2020-03-05] MEDS ORDERED: CALCIUM 500 MG/TAB PO SCH (15:45)
--- NOTE | 2020-03-05 16:02 | NUR ---
Foam Dressing Change Foam dressing changed for pt, pt tolerated well. Will continue to monitor.
[2020-03-05] MEDS ORDERED: CALCIUM 500 MG/TAB PO ONE (18:15)
[2020-03-05] MEDS: MIDAZOLAM HCL IV PRN (18:55)
[2020-03-05] MEDS: NS IV PRN (18:55)
--- NOTE | 2020-03-05 19:25 | NUR ---
Report Report given to Conchita LANDEROS using SBAR. All questions answered at this time. Isolation precautions observed during shift.
--- NOTE | 2020-03-05 19:30 | NUR ---
REPORT OBTAINED FROM DAY SHIFT NURSE. PT IS INTUBATED AND TOLERATING VENT SETTINGS WELL. PT IS SEDATED AND NO RESPIRATORY DISTRESS NOTED. VERSED DRIP IS INFUSING WELL AT 2MG/HR, MORPHINE DRIP AT 0.5MG/HR AND IVF OF 1/2NS AT 40ML/HR, ALL INFUSING VIA KATHLEEN PICC WITH PICC DRESSING DRY AND INTACT. SKIN IS WARM AND DRY TO TOUCH. NO SIGNS OR SYMPTOMS OF HYPOGLYCEMIA OR HYPERGLYCEMIA NOTED. OGT FEEDING INFUSING WELL AT 30ML/HR AND RESIDUAL 5ML. OGT PLACEMENT AUSCULTATED AND PLACEMENT VERIFIED. BATES CATH TO GRAVITY DRAINAGE DRAINING YELLOWISH URINE.
[2020-03-05] MEDS: ATORVASTATIN 20 MG TABLET PO SCH (21:11)
[2020-03-05] MEDS: CALCIUM 500 MG/TAB PO SCH (21:12)
--- NOTE | 2020-03-05 21:13 | NUR ---
SCHEDULED SQ HEPARIN GIVEN AFTER CONSULTING WITH EDMUND [facility]. PTT IS ELEVATED AT 53.1. PER EDMUND, SQ HEPARIN DOES NOT HAVE EFFECT ON PTT.
--- NOTE | 2020-03-05 21:53 | NUR ---
ACCUCHECK 261 AND 6 UNITS REGULAR INSULIN GIVEN SQ. SKIN REMAINS WARM AND DRY TO TOUCH.
[2020-03-06] VITALS (36 sets, daily range): BP systolic 109–152
[2020-03-06] MEDS: PIPERACILLIN/TAZO 2.25G/DEX-IS 50 ML IV SCH ×4 (02:15→21:25)
--- NOTE | 2020-03-06 04:45 | NUR ---
CHG BATH GIVEN, INCLUDING ORAL CARE AND BATES CATH CARE.
[2020-03-06 05:56] LABS: BASOPHILS % (AUTO) 0.1 % (0.0-2.0); HEMOGLOBIN 10.6 g/dL (14.0-18.0); LYMPHOCYTES # (AUTO) 0.5 K/uL (1.0-5.5); LYMPHOCYTES % (AUTO) 3.6 % (20.5-51.5); MEAN CORPUSCULAR HEMOGLOBIN 29 pg (27-31); MEAN CORPUSCULAR HGB CONC 32 % (32-36); MEAN CORPUSCULAR VOLUME 91 fL (79.0-98.0); MONOCYTES # (AUTO) 0.8 K/uL (0.0-1.0); MONOCYTES % (AUTO) 6.5 % (1.7-9.3); NEUTROPHILS # (AUTO) 11.6 K/uL (1.8-7.7); NEUTROPHILS % (AUTO) 89.8 % (40.0-70.0); PLATELET COUNT (AUTO) 184 K/uL (130-430); RED BLOOD CELL COUNT(AUTO) 3.63 MIL/uL (4.2-6.2); RED CELL DISTRIBUTION WIDTH 15.9 % (9.0-15.0); WHITE BLOOD COUNT (AUTO) 12.9 K/uL (4.8-10.8)
[2020-03-06] MEDS: CALCIUM 500 MG/TAB PO SCH ×3 (06:05→21:26)
[2020-03-06] MEDS: HEPARIN SODIUM,PORCINE 5000 UNITS/ML VIAL SUBCUT SCH ×3 (06:06→21:19)
[2020-03-06] MEDS: INSULIN REGULAR, HUMAN 100 UNITS/ML, 10 ML VIAL (humuLIN R) SUBCUT PRN ×4 (06:35→21:03)
[2020-03-06 06:57] LABS: INR 1.1 (0.80-1.20)
[2020-03-06 07:11] LABS: ALBUMIN 1.2 g/dL (3.4-4.8); ANION GAP 7 (5-15); CHLORIDE 118 mmol/L (98-107); CREATININE 2.28 mg/dL (0.55-1.30); GLUCOSE 227 mg/dL (70-99); POTASSIUM 4.6 mmol/L (3.5-5.1); SODIUM SERUM 147 mmol/L (136-145); UREA NITROGEN, BLOOD 71 mg/dL (8-21)
--- NOTE | 2020-03-06 07:45 | NUR ---
Report Received from Conchita LANDEROS.
[2020-03-06 08:23] LABS: ALANINE AMINOTRANSFERASE 24 U/L (12-78); ASPARTATE AMINOTRANSFERASE 33 U/L (10-37); CALCIUM 6.9 mg/dL (8.4-11.0); TOTAL BILIRUBIN 0.2 mg/dL (0.0-1.0)
--- NOTE | 2020-03-06 08:25 | NUR ---
PAGED PAGED WADE MARQUIS AT [phone] SPOKE WITH LAURA.
--- NOTE | 2020-03-06 08:25 | NUR ---
Dr. Kay rounds updates given, will follow up with any new orders.
[2020-03-06] MEDS: QUEtiapine FUMARATE 25 MG TABLET PO SCH ×3 (08:39→21:26)
[2020-03-06] MEDS: ASPIRIN 81 MG TABLET(ECOTRIN) PO SCH (08:39)
[2020-03-06] MEDS: Effexor 37.5 MG TAB PO SCH ×2 (08:39→21:26)
[2020-03-06] MEDS: DOCUSATE SODIUM 250 MG CAPSULE PO SCH (08:39)
[2020-03-06] MEDS: MULTIVITAMINS TAB 1 TABLET PO SCH (08:39)
[2020-03-06] MEDS: DOXYCYCLINE HYCLATE 100 MG CAPSULE PO SCH ×2 (08:39→21:26)
[2020-03-06] MEDS: PSYLLIUM HUSK 1 PKT PACKET PO SCH ×2 (08:40→21:26)
[2020-03-06] MEDS: DEXAMETHASONE SOD PHOSPHATE 10 MG/ML VIAL IVP SCH (08:40)
--- NOTE | 2020-03-06 08:40 | NUR ---
Rounds/Medication patient resting in bed, obtunded, no signs of distress, ETT 7.5 lipline 25, vent settings 22, 70%, 8, pressure 16, OGT in place no residual output, water flush provided per MD orders, medications administered per MD orders, right upper arm PICC intact, no s/s of infiltration, on versed 2m/hr, morphine 0.5mg/hr, IVF infusing, continuing to monitor, bed in lowest position, three side rails up, bed alarm on, fall, isolation and aspiration precautions in place.
[2020-03-06] MEDS: amLODIPine BESYLATE 10 MG TABLET PO SCH (08:41)
[2020-03-06] MEDS: INSULIN GLARGINE 100 UNITS/ML 10 ML VIAL SUBCUT SCH (08:44)
--- NOTE | 2020-03-06 09:50 | NUR ---
Dr. Del Angel rounds updates given, will follow up with any new orders.
--- NOTE | 2020-03-06 11:57 | NUR ---
RN rounds/Medication patient resting in bed, eyes closed, still obtunded, blood glucose checked and insulin coverage provided per MD orders, Hernandes Catheter emptied, temperature taken, afebrile, PICC line is patent and infusing well, no s/s of infiltration, patient is still on versed 2mg/hour, morphine 0.5mg/hour and IVF, patient still has pitting edema, continuing to monitor, bed in lowest position, three side rails up, fall, aspiration and isolation precautions in place.
--- NOTE | 2020-03-06 12:00 | NUR ---
Dr. Haynes rounds aware of low calcium, received orders to change tubefeeding to glucerna, will follow up.
[2020-03-06] MEDS ORDERED: FUROSEMIDE 20 MG/2 ML VIAL IVP ONE (13:00)
[2020-03-06] MEDS: 0.45% NACL 1,000 ML IV SCH (14:04)
--- NOTE | 2020-03-06 14:35 | NUR ---
RN rounds/Medication patient resting in bed, eyes closed, still obtunded, administered medications per MD orders, will follow with dose of albumin, verified with pharmacy that the albumin can piggyback on 10/18 NS, PICC line is patent and infusing well, no s/s of infiltration, patient is still on versed 2mg/hour, morphine 0.5mg/hour and IVF, patient still has pitting edema, continuing to monitor, bed in lowest position, three side rails up, fall, aspiration and isolation precautions in place.
[2020-03-06] MEDS: ALBUMIN HUMAN 25% 50 ML IV SCH ×2 (15:10→19:00)
--- NOTE | 2020-03-06 15:10 | NUR ---
RN rounds/Bloody stool patient resting in bed, eyes closed, breathing without distress, hung albumin per MD orders. Upon turning patient bloody, mucous like stool was noted, stool amount on chux pad was minimal and some stool was noted to be still in the rectum, will notify MD.
--- NOTE | 2020-03-06 15:36 | NUR ---
Pagejacquie Marcus regarding blood in stool. Addendum: 03/06/20 at 1640 by Roland Palma RN 1600 orders received, will follow up.
[2020-03-06] MEDS ORDERED: MINERAL OIL 133 ML ENEMA RC ONE (16:00)
--- NOTE | 2020-03-06 18:05 | NUR ---
RN rounds/Medication patient resting in bed, eyes closed, still obtunded, blood glucose checked and insulin coverage provided per MD orders, Hernandes Catheter emptied, new tube feeding hung per MD orders, water flush provided, PICC line is patent and infusing well, no s/s of infiltration, patient is still on versed 2mg/hour, morphine 0.5mg/hour and IVF, patient still has pitting edema to bilateral upper extremities, continuing to monitor, bed in lowest position, three side rails up, fall, aspiration and isolation precautions in place.
--- NOTE | 2020-03-06 18:51 | NUR ---
Closing note patient resting in bed, eyes closed, still obtunded, tolerating vent settings, all needs met, will endorse report to NOC shift nurse, PICC line is patent and infusing well, no s/s of infiltration, patient is still on versed 2mg/hour, morphine 0.5mg/hour and IVF, patient still has pitting edema to bilateral upper extremities, bed in lowest position, three side rails up, fall, aspiration and isolation precautions in place.
--- NOTE | 2020-03-06 20:15 | NUR ---
MORPHINE SULFATE GTT 0.5 MG ML HOUR , CHEST MOVEMENT SYMMETRICAL ON VENTILATOR .
--- NOTE | 2020-03-06 21:15 | NUR ---
Patient @ 80 % on vent this hour PEEP 8 02 SAT 91 %
[2020-03-06] MEDS: ATORVASTATIN 20 MG TABLET PO SCH (21:26)
--- NOTE | 2020-03-06 21:30 | NUR ---
ALBUMEN 25 % infusing @ 50 ml hour as ordered patient kept upright position minimal vent alarming noted continue to monitor .
--- NOTE | 2020-03-06 23:30 | NUR ---
Patient placed on 100 % 02 on VENT D/T DE SATING , SAT NOW 95 % continue to monitor .
[2020-03-07] VITALS (32 sets, daily range): BP systolic 119–165
[2020-03-07] MEDS: ALBUMIN HUMAN 25% 50 ML IV SCH ×4 (01:14→18:00)
[2020-03-07] MEDS: PIPERACILLIN/TAZO 2.25G/DEX-IS 50 ML IV SCH ×4 (01:15→20:52)
[2020-03-07] MEDS: MIDAZOLAM HCL IV PRN (01:18)
[2020-03-07] MEDS: NS IV PRN (01:18)
--- NOTE | 2020-03-07 02:44 | NUR ---
HEPARIN 5000 UNITS SUB Q. ADMINISTER ORDERED , NO S/SX OF ADVERSE REACTION NOTED CHEST MOVEMENT SHALLOW ALSO SYMMETRICAL UNLABORED .
--- NOTE | 2020-03-07 04:01 | NUR ---
TURNING & Repositioning patient off loading with pillows , comfort measures implemented 02 SAT 95 % tolerated / .
[2020-03-07 05:50] LABS: BASOPHILS % (AUTO) 0.1 % (0.0-2.0); HEMATOCRIT 32.1 % (36-54); HEMOGLOBIN 10.3 g/dL (14.0-18.0); LYMPHOCYTES # (AUTO) 0.5 K/uL (1.0-5.5); LYMPHOCYTES % (AUTO) 3.8 % (20.5-51.5); MEAN CORPUSCULAR HEMOGLOBIN 30 pg (27-31); MEAN CORPUSCULAR HGB CONC 32 % (32-36); MEAN CORPUSCULAR VOLUME 91 fL (79.0-98.0); MONOCYTES # (AUTO) 0.7 K/uL (0.0-1.0); MONOCYTES % (AUTO) 5.7 % (1.7-9.3); NEUTROPHILS # (AUTO) 11.7 K/uL (1.8-7.7); NEUTROPHILS % (AUTO) 90.4 % (40.0-70.0); PLATELET COUNT (AUTO) 155 K/uL (130-430); RED BLOOD CELL COUNT(AUTO) 3.51 MIL/uL (4.2-6.2); RED CELL DISTRIBUTION WIDTH 15.7 % (9.0-15.0); WHITE BLOOD COUNT (AUTO) 12.9 K/uL (4.8-10.8)
[2020-03-07] MEDS: CALCIUM 500 MG/TAB PO SCH ×3 (05:51→20:52)
[2020-03-07] MEDS: HEPARIN SODIUM,PORCINE 5000 UNITS/ML VIAL SUBCUT SCH ×3 (05:53→20:54)
[2020-03-07 06:07] LABS: ANION GAP 9 (5-15); CALCIUM 7.1 mg/dL (8.4-11.0); CHLORIDE 114 mmol/L (98-107); CREATININE 2.31 mg/dL (0.55-1.30); GLUCOSE 273 mg/dL (70-99); POTASSIUM 4.9 mmol/L (3.5-5.1); SODIUM SERUM 146 mmol/L (136-145); UREA NITROGEN, BLOOD 74 mg/dL (8-21)
[2020-03-07] MEDS: INSULIN REGULAR, HUMAN 100 UNITS/ML, 10 ML VIAL (humuLIN R) SUBCUT PRN ×3 (06:07→21:39)
--- NOTE | 2020-03-07 08:00 | NUR ---
AM ASSESSMENT. PT MECHANICALLY VENTILATED, EYES CLOSED, SLIGHT HEAD MOTION SEEN, TEMP 97.1, WBC 12.9, IV ZOSYN CONTINUES, PT ON VERSED DRIP AT 2 MG/HR, MORPHINE DRIP AT 0.5 MG PER HR, 1/2 NS AT 40 ML PER HR, ARMS AND AROUND HIS ANKLES EDEMATOUS, TURNED PT TO HIS SIDE, PLACED EXTREMITIES UP ON PILLOW TO REDUCE SWELLING.
--- NOTE | 2020-03-07 08:40 | NUR ---
FOOT MITER OPERATOR. DR LANDEROS WENT TO SEE PT. ABG REPORT HANDED TO . HE ASKED FOR THE PHONE NUMBER OF PT'S FAMILY. EDMUND'S NUMBER GIVEN. HE STATED THAT HE WILL CONTACT THEM FOR UPDATE.
[2020-03-07] MEDS: DOCUSATE SODIUM 250 MG CAPSULE PO SCH (08:42)
[2020-03-07] MEDS: FUROSEMIDE 20 MG/2 ML VIAL IVP SCH (08:42)
[2020-03-07] MEDS: MULTIVITAMINS TAB 1 TABLET PO SCH (08:42)
[2020-03-07] MEDS: ASPIRIN 81 MG TABLET(ECOTRIN) PO SCH (08:42)
[2020-03-07] MEDS: PSYLLIUM HUSK 1 PKT PACKET PO SCH ×2 (08:42→20:53)
[2020-03-07] MEDS: QUEtiapine FUMARATE 25 MG TABLET PO SCH ×3 (08:43→20:53)
[2020-03-07] MEDS: amLODIPine BESYLATE 10 MG TABLET PO SCH (08:43)
[2020-03-07] MEDS: DEXAMETHASONE SOD PHOSPHATE 10 MG/ML VIAL IVP SCH (08:44)
[2020-03-07] MEDS: Effexor 37.5 MG TAB PO SCH ×2 (08:53→20:52)
[2020-03-07] MEDS: DOXYCYCLINE HYCLATE 100 MG CAPSULE PO SCH (08:53)
[2020-03-07] MEDS: INSULIN GLARGINE 100 UNITS/ML 10 ML VIAL SUBCUT SCH (08:55)
--- NOTE | 2020-03-07 09:25 | NUR ---
VENT. R.T. CHANGED FIO2 TO 100%, O2 SAT RANGING BETWEEN 83 TO 88%.
--- NOTE | 2020-03-07 12:50 | NUR ---
CONSENT. DR LOERA IN THE UNIT AND ASKED TO SPEAK TO THE PT'S FAMILY. CALLED UP PIPO SANTOS, SHE SAID THAT SHE IS A FRIEND OF THE PT'S SPOUSE AND WILL TRANSLATE INFORMATION OF THE DOCTOR TO THE FAMILY.
--- NOTE | 2020-03-07 13:40 | NUR ---
FAMILY. PT'S SON IN LAW, SANTOSH, CALLED AND UPDATED HIM ON PT'S STATUS, HE STATED THAT HIS MOTHER IN LAW, WHO IS THE PT'S SPOUSE HAD ASKED HIM TO GIVE HIS OPINION ON THE CODE STATUS. HE SAID THAT HE DOES NOT WANT TO PARTICIPATE IN THIS REGARD SINCE HE IS NOT THE IMMEDIATE FAMILY. A CALL MADE OUT TO ANGEL, NAME ON THE FILE, SHE STATED THAT SHE IS A FRIEND OF THE PATIENT'S (NEELIMA DUKES DENI). SHE SAID WITH THE HELP OF ANOTHER FEMALE FRIEND, PIPO SANTOS WHO TRANSLATED THE WORDS INTO THEIR PRIMARY LANGUAGE, THE 'S DECISION IS NOT TO RESUSCITATE THE PATIENT.
--- NOTE | 2020-03-07 14:38 | NUR ---
Nutrition F/U Admitting Diagnosis: PNA, Sepsis Medical History Comment: PMHx includes DM, HLD, protein malnutrition, anemia of CKD3, dementia with behavior disturbance, depression per physician notes. 03/04/20: Sepsis, Multiorgan Failure. 03/04 CXR: unchanged appearance of the bilateral infiltrates and effusions. Subjective Information RD spoke with pt's primary RN today -- RN stated pt tolerating TF well with residuals at 10 ml today. Current TF regimen per RN: Glucerna 1.5 at goal rate of 30 ml/hr w/ free water flush 200 ml Q4h -- provides 1080 kcal, 59 g protein, 547 ml free H2O daily, meeting 77% of estimated calorie needs and 82% of estimated protein needs. Per MD note, pt remains to be intubated and on vent. MD reported that family wanted to pt on DNR. Per MD note, palliative hospice will be appropriate, will discuss with family. Per RN note, pt had blood in stool on 03/06 15:36. Current Diet Order/Nutrition Support: Glucerna 1.5 30 ml/hr, Free Water Flush: 200 ml Q4H x1 day Pertinent Medications: Lactulose, Tradjenta, MVI, Metformin, Human Insulin, Decadron, Seroquel, Heparin, Zinc, Haldol, Lipitor, Colace, Lasix, Calcium Carbonate, Milk of Magnesia Pertinent Labs: (03/07) Na: 146 H (trending down), K: 4.9WNL, BUN: 74H, CRE: 2.31H, BG 273H (trending down), POC BH (trending down), Calcium: 7.1 L COVID- PCR 02/25 Positive, 02/27 Negative Height (Feet): 5 feet Height (Inches): 1.00 inches Weight (Pounds): 112 pounds Weight (Calculated Kilograms): 50.408008 kilograms Body Mass Index: 21.16 kg/m2 Skin Integrity Comment: Ted Score: 11. Supervisor Body Assembly note 03/03: No PI No wounds. Per EMR 2+ non-pitting edema to Bilateral hand. Current % PO: N/A on EN Estimated Energy Expenditure (kcals/day) T: 36.39 degrees Celsius, Ve: 15.7 1401 kcal/day (PSU 2003b for acute state on vent) Estimated Protein Required (g/day) 72-96g/day (1.5-2/kg based on CBW for critical illness, sepsis) Estimated Fluid Required (l/day) 1.2-1.4L/day based on CBW for maintenance Problem/Etiology/Signs/Symptoms Inadequate protein energy intake related to estimated nutrition needs for medical condition as evidenced by PO intake not meeting nutrition needs. (*no longer applicable) Increased nutrient needs related to increased metabolic demands as evidenced by critical illness, sepsis. (*ongoing) Altered nutrition related labs r/t endocrine and renal dysfunction AEB elevated BG, POC BG, BUN, CRE lab values. (*ongoing) Expected Outcomes/Goals -Monitor EN tolerance and intakes w/ goal of pt meeting at least 75% of estimated nutritional needs, labs trending WNL, normal GI function, and skin integrity/wt maintenance Dietitian Recommendations * Recommend: Glucerna 1.5 at 35ml/hr, Prosource BID, Free Water Flush 50ml Q4H via OGT Provides: 1380 kcal, 99gm protein and 998ml free water daily. Meets: 98% of estimated calorie needs and 103% of upper end of estimated protein needs. Follow Up High Risk: F/U in 2-3days
[2020-03-07] MEDS: 0.45% NACL 1,000 ML IV SCH (15:09)
--- NOTE | 2020-03-07 15:31 | NUR ---
Dietitian Recommendations * Recommend: Glucerna 1.5 at 35ml/hr, Prosource BID, Free Water Flush 50ml Q4H via OGT Provides: 1380 kcal, 99gm protein and 998ml free water daily. Meets: 98% of estimated calorie needs and 103% of upper end of estimated protein needs. Please see Nutrition F/U for details. EP,RD
--- NOTE | 2020-03-07 18:00 | NUR ---
DIET. PT ON FEEDING VIA OGT, TOLERATING WELL, ABDOMEN SOFT ON PALPATION, NO VOMITING THROUGH OUT THE SHIFT.
--- NOTE | 2020-03-07 19:15 | NUR ---
OPENING NOTE: SBAR REPORT RECEIVED FROM JOSE DAVID LANDEROS. CARE ASSUMED. PT LAYING IN BED. PT INTUBATED. ETT SIZE LIP LINE. VENT SETTINGS PRESSURE CONTROL 16, RATE 22, FIO2 100%, PEEP 8. PT SINUS TACHYCARDIA ON MONITOR. RATE 110. PT HAS RIGHT UPPER EXTREMITY PICC LINE RUNNING MORPHINE @ 0.5 MG/HR, VERSED @ 2 MG/HR, AND NS @ 40 ML/HR. PT HAS LEFT FOREARM 20G SALINE LOCKED. PT HAS 2+ PITTING EDEMA TO BILATERAL UPPER EXTREMITIES AND BILATERAL LOWER EXTREMITIES. PT HAS OG TUBE RUNNING GLUCERNA @ 30 ML/HR. PLACEMENT VERIFIED. ABDOMEN SOFT NON DISTENDED. BATES CATHETER IN PLACE FLOWING TO GRAVITY. URINE YELLOW AND CLEAR. PT HAS ERYTHEMA TO SACRUM. SKIN INTACT. BED LOCKED IN LOWEST POSITION. CALL LIGHT WITHIN REACH. SAFETY PRECAUTIONS IN PLACE. WILL CONTINUE TO MONITOR.
[2020-03-07] MEDS: ATORVASTATIN 20 MG TABLET PO SCH (20:53)
[2020-03-08] VITALS (23 sets, daily range): BP systolic 94–138
[2020-03-08] MEDS: ALBUMIN HUMAN 25% 50 ML IV SCH ×3 (01:35→13:00)
[2020-03-08] MEDS: PIPERACILLIN/TAZO 2.25G/DEX-IS 50 ML IV SCH ×3 (01:36→14:55)
[2020-03-08] MEDS: CALCIUM 500 MG/TAB PO SCH ×2 (07:15→14:55)
[2020-03-08] MEDS: HEPARIN SODIUM,PORCINE 5000 UNITS/ML VIAL SUBCUT SCH ×2 (07:16→14:56)
--- NOTE | 2020-03-08 07:30 | NUR ---
CLOSING NOTE PT LAYING IN BED. NO SIGNS OR SYMPTOMS OF DISTRESS NOTED. VENT SETTINGS UNCHANGED. SBAR REPORT GIVEN TO NEIDA LANDEROS. CARE ENDORSED
--- NOTE | 2020-03-08 07:53 | NUR ---
Opening Notes Pt received laying in bed with eyes closed. No distress or pain noted at this time. Addendum: 03/09/20 at 0756 by Saira Sarmiento RN Pt is on FiO2 100%, low saturation noted. Ranging from 76-72% noted.
[2020-03-08 07:58] LABS: HEMATOCRIT 30.4 % (36-54); HEMOGLOBIN 9.8 g/dL (14.0-18.0); LYMPHOCYTES # (AUTO) 0.8 K/uL (1.0-5.5); LYMPHOCYTES % (AUTO) 4.9 % (20.5-51.5); MEAN CORPUSCULAR HEMOGLOBIN 29 pg (27-31); MEAN CORPUSCULAR HGB CONC 32 % (32-36); MEAN CORPUSCULAR VOLUME 91 fL (79.0-98.0); MONOCYTES # (AUTO) 0.6 K/uL (0.0-1.0); MONOCYTES % (AUTO) 3.3 % (1.7-9.3); NEUTROPHILS # (AUTO) 15.5 K/uL (1.8-7.7); PLATELET COUNT (AUTO) 167 K/uL (130-430); RED BLOOD CELL COUNT(AUTO) 3.36 MIL/uL (4.2-6.2); RED CELL DISTRIBUTION WIDTH 15.8 % (9.0-15.0); WHITE BLOOD COUNT (AUTO) 16.8 K/uL (4.8-10.8)
[2020-03-08 08:09] LABS: ANION GAP 11 (5-15); CALCIUM 7.4 mg/dL (8.4-11.0); CHLORIDE 112 mmol/L (98-107); CREATININE 2.38 mg/dL (0.55-1.30); GLUCOSE 160 mg/dL (70-99); POTASSIUM 5.1 mmol/L (3.5-5.1); SODIUM SERUM 146 mmol/L (136-145); UREA NITROGEN, BLOOD 88 mg/dL (8-21)
[2020-03-08] MEDS: INSULIN GLARGINE 100 UNITS/ML 10 ML VIAL SUBCUT SCH (08:12)
[2020-03-08] MEDS: DOCUSATE SODIUM 250 MG CAPSULE PO SCH (08:13)
[2020-03-08] MEDS: DEXAMETHASONE SOD PHOSPHATE 10 MG/ML VIAL IVP SCH (08:13)
[2020-03-08] MEDS: QUEtiapine FUMARATE 25 MG TABLET PO SCH ×2 (08:15→14:57)
[2020-03-08] MEDS: MULTIVITAMINS TAB 1 TABLET PO SCH (08:15)
[2020-03-08] MEDS: ASPIRIN 81 MG TABLET(ECOTRIN) PO SCH (08:15)
[2020-03-08] MEDS: Effexor 37.5 MG TAB PO SCH (08:15)
[2020-03-08] MEDS: amLODIPine BESYLATE 10 MG TABLET PO SCH (08:16)
[2020-03-08] MEDS: FUROSEMIDE 20 MG/2 ML VIAL IVP SCH (08:52)
[2020-03-08] MEDS: PSYLLIUM HUSK 1 PKT PACKET PO SCH (08:52)
--- NOTE | 2020-03-08 09:15 | NUR ---
MD Dr. Del Angel made aware of the low saturation.
--- NOTE | 2020-03-08 10:10 | NUR ---
FiO2 Low saturation noted, pt provided suction and oral care. No changes with saturation at this time.
[2020-03-08 10:15] LABS: NEUTROPHILS % (AUTO) 91.8 % (40.0-70.0)
--- NOTE | 2020-03-08 14:10 | NUR ---
Morphine Morphine titrated to 1 mg/hr. Pt tolerating well, will continue to monitor.
--- NOTE | 2020-03-08 17:17 | NUR ---
called to pronounce this 79 yo admitted covid pneumonia adn sepsis; pt made DNR PE no signs of life pupils fixed and dilated non reactive no heart sounds no breathing efforts no peripheral pulses pt pronounced at 1712
--- NOTE | 2020-03-08 17:34 | NUR ---
Dr. Del Angel made aware of patient expiration.
--- NOTE | 2020-03-08 17:55 | NUR ---
[facility] pts , [facility] released the body spoke to [place]. Reference # [id number]
--- NOTE | 2020-03-08 19:00 | NUR ---
Strike Plate Attacher Spoke to Ham at the [place] [facility] office, declared that pt is not a [facility] case.
--- NOTE | 2020-03-08 20:00 | NUR ---
POST MORTEM CARE POST MORTEM CARE PERFORMED. AWAITING MORTUARY [employer].
[2020-03-09] MEDS ORDERED: MIDAZOLAM HCL IV SCH ×2
[2020-03-09] MEDS ORDERED: NS IV SCH ×2
== END 2020-03-08 17:12 | disposition expired | DRG 870 ==
LOC: SED 21:51 → EEVIPCON 21:51 → STU 02-27 01:13 → SIC 03-01 07:57
PROVIDERS: ADMIT Internal Medicine Infectious Disease; ATTEND Internal Medicine Infectious Disease
PROC: 009U3ZX Drainage of Spinal Canal, Percutaneous Approach, Diagnostic (ICD-10-PCS; 2020-02-26)
PROC: 5A1955Z Respiratory Ventilation, Greater than 96 Consecutive Hours (ICD-10-PCS; principal; 2020-03-01)
PROC: 0BH17EZ Insertion of Endotracheal Airway into Trachea, Via Natural or Artificial Opening (ICD-10-PCS; 2020-03-01)
PROC: 30233N1 Transfusion of Nonautologous Red Blood Cells into Peripheral Vein, Percutaneous Approach (ICD-10-PCS; 2020-03-03)
DX: A41.89 Other specified sepsis (principal); U07.1 COVID-19; E43 Unspecified severe protein-calorie malnutrition; J12.89 Other viral pneumonia; J96.21 Acute and chronic respiratory failure with hypoxia; R65.21 Severe sepsis with septic shock; G92 Toxic encephalopathy; D61.818 Other pancytopenia; F03.91 Unspecified dementia, unspecified severity, with behavioral disturbance; E87.0 Hyperosmolality and hypernatremia; N17.9 Acute kidney failure, unspecified; Z99.11 Dependence on respirator [ventilator] status; Z66 Do not resuscitate; F41.9 Anxiety disorder, unspecified; F32.9 Major depressive disorder, single episode, unspecified; E78.5 Hyperlipidemia, unspecified; D72.819 Decreased white blood cell count, unspecified; E11.22 Type 2 diabetes mellitus with diabetic chronic kidney disease; I49.9 Cardiac arrhythmia, unspecified; I12.9 Hypertensive chronic kidney disease with stage 1 through stage 4 chronic kidney disease, or unspecified chronic kidney disease; Y95 Nosocomial condition; R79.1 Abnormal coagulation profile; D69.59 Other secondary thrombocytopenia; N18.3 Chronic kidney disease, stage 3 (moderate); D63.1 Anemia in chronic kidney disease; E86.0 Dehydration; Z86.73 Personal history of transient ischemic attack (TIA), and cerebral infarction without residual deficits; Z68.21 Body mass index [BMI] 21.0-21.9, adult; Z78.1 Physical restraint status; Z74.01 Bed confinement status
CPT/HCPCS: 36415; 36600; 71045; 80048; 80053; 81000-TC; 82043; 82272; 82550-TC; 82570; 82570-TC; 82607; 82728; 82746; 82803-TC; 82962; 83036; 83540-TC; 83550-TC; 83605; 83615-TC; 83735-TC; 83880; 83935-TC; 84100-TC; 84302-TC; 84443-TC; 84484; 84550-TC; 85025; 85379; 85384-TC; 85610-TC; 85730-TC; 86140; 86713; 86738; 86886; 86900; 86901; 86920; 87040-TC; 87081; 87086; 87205-TC; 87449; 93005; 94002; 94003; 94640; 96365; 99291; C1751; G0378; J0330; J0456; J0692; J1100; J1160; J1644; J1650; J1815; J1940; J2060; J2250; J2270; J2543; J2704; J3370; J3465; J3480; J3490; J7030; J7050; J7060; P9021; P9046; U0002; U0003-CS